=== PATIENT | female | born 1990 | race Caucasian/White ===

== ENCOUNTER 2018-03-14 16:04 | Emergency (ER) | payer OTHER ==
--- NOTE | 2018-03-14 19:11 | ED ---
- HPI Summary HPI Summary: 27 female presents ER with complaints of some lower suprapubic cramping and lower back discomfort that's been ongoing over the past couple weeks. Symptoms have become more frequent over the past 2 days. Patient states she thinks she is approximately 2 months as her last menstrual cycle was approximately 2 months ago, January 13. Also states she's had intermittent headaches. Denies any control. Has taken test at home that are positive. Denies any vaginal bleeding or discharge. . No fever or chills. Denies any urinary symptoms. Normal bowel movements. No other complaints or concerns. Has not taken any medication other than Excedrin for headaches she's been having. Has appointment with OB Sheela April 06. - History of Current Complaint Chief Complaint: EDOBProblems Stated Complaint: POSS PREG WITH HEADACHE AND CRAMPS Hx Obtained From: Patient Onset/Duration: Started Weeks Ago Timing: Intermittent Severity: Mild Current Severity: Mild Pain Intensity: 6 Location of Pain: Suprapubic Character: Cramping - Radiates to her lower back patient describes it as " period cramps/discomfort" Aggravating Factors: Nothing Alleviating Factors: Medication - Excedrin Associated Signs and Symptoms: Positive: Negative. Negative: Appetite, Fever, Nausea, Urinary Symptoms, Vaginal Bleeding or Discharge, Vomiting - Assessment SAB: 0 IEA: 0 - Additional Pertinent History Maternal Blood Type and Rh: A Positive - Allergies/Home Medications Allergies/Adverse Reactions: Allergies Allergy/AdvReac Type Severity Reaction Status Date / Time No Known Allergies Allergy Verified 03/14/18 16:28 PMH/Surg Hx/FS Hx/Imm Hx Endocrine/Hematology History: Denies: Hx Anticoagulant Therapy, Hx Diabetes Cardiovascular History: Denies: Hx Hypertension, Hx Pacemaker/ICD Respiratory History: Reports: Hx Asthma Musculoskeletal History: Reports: Hx Scoliosis - SLIGHT Sensory History: Denies: Hx Hearing Aid Neurological History: Denies: Hx Headaches, Other Neuro Impairments/Disorders Psychiatric History: Reports: Hx Depression, Hx Community Mental Health Tx Denies: Hx Panic Disorder, Hx of Violent Episodes Against Others - Surgical History Surgery Procedure, Year, and Place: None - Immunization History Date of Tetanus Vaccine: UTD Date of Influenza Vaccine: NONE Immunizations Up to Date: Yes Infectious Disease History: No Infectious Disease History: Reports: 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, elbow Denies: Traveled Outside the [place] in Last 30 Days - Family History Known Family History: Positive: None - Social History Alcohol Use: None Substance Use Type: Reports: None Smoking Status (MU): Never Smoked Tobacco Review of Systems Constitutional: Negative Cardiovascular: Negative Respiratory: Negative Positive: Abdominal Pain Musculoskeletal: Negative Skin: Negative Positive: Headache All Other Systems Reviewed And Are Negative: Yes Physical Exam - Physical Exam Triage Information Reviewed: Yes Vital Signs On Initial Exam: Temp 98.5 Heart rate 71 Blood pressure 105/71 Oxygen 100 Respirations 16 Appearance: Positive: Well-Appearing, No Pain Distress, Well-Nourished Skin: Positive: Warm, Skin Color Reflects Adequate Perfusion, Dry. Negative: Cold, Numb, Soft, Pale Head/Face: Positive: Normal Head/Face Inspection Eyes: Positive: Conjunctiva Clear ENT: Positive: Hearing grossly normal Neck: Positive: Supple, Nontender Respiratory/Lung Sounds: Positive: Clear to Auscultation, Breath Sounds Present. Negative: Rales, Rhonchi, Wheezes Cardiovascular: Positive: Normal, RRR, Pulses are Symmetrical in both Upper and Lower Extremities. Negative: Murmur, Rub Abdomen Description: Positive: Nontender, No Organomegaly, Soft, Other: - Negative Gagnon's, psoas, rebound, Rovsing. Negative: Bruit, CVA Tenderness (R) , CVA Tenderness (L), Distended, Guarding, McBurney's Point Tenderness, Peritoneal Signs Bowel Sounds: Positive: Present Musculoskeletal: Positive: Normal, Strength/ROM Intact Neurological: Positive: Normal, Sensory/Motor Intact, Alert, Oriented to Person Place, Time, NV Bundle Intact Distally, Normal Gait - Vaginal Assessment Presentation Comment: not examined Diagnostics - Vital Signs Vital Signs Temp Pulse Resp BP Pulse Ox 03/14/18 16:23 98.5 F 71 16 105/71 100 - Laboratory Lab Statement: Any lab studies that have been ordered have been reviewed, and results considered in the medical decision making process. - Ultrasound No standard instances Ultrasound Interpretation: Positive (See Comments) - #. Single intrauterine gestation with estimated gestational age of 6 weeks 2 days, small for dates based on the LMP, with multiple additional poor prognostic factors including absence of movement or detectable cardiac activity and reticulated pattern of low level echoes within the gestational sac as well as small perigestational hemorrhage. Probable nonviable . #. Small involuting corpus luteum cyst at the LEFT ovary. Ultrasound Interpretation Completed By: Radiologist Re-Evaluation - Re-Evaluation First Eval Re-Evaluation Time: 19:35 Change: Unchanged - Updated on ultrasound report Course/Dx - Course Course Of Treatment: Given heating pad for pain. Ultrasound obtained showing intrauterine gestation however poor prognostic factors were seen suggesting probable nonviable . Patient probably experiencing threatened miscarriage. Follow-up with CARE DIRECTOR RN 1-3 days. Tylenol and heating pad. Increase fluid intake. Aware worsening signs and symptoms watch out for and when to return to ER if occur. Patient consoled. All questions were answered. Rest of exam and vital signs normal. No other concerns at this time. - Differential Diagnosis/HQI/PQRI: Threatened , Early - Diagnoses Provider Diagnoses: , Threatened miscarriage in early Discharge - Sign-Out/Discharge Documenting (check all that apply): Patient Departure - Discharge Plan Condition: Good Disposition: HOME Patient Education Materials: Threatened Miscarriage (ED), (ED) Referrals: Luisa Zambrano MD [Medical Doctor] - Chirag Turcios NP [Primary Care Provider] - Additional Instructions: Follow-up with CARE DIRECTOR RN for repeat labs and imaging. Any new or worsening symptoms please seek medical attention, as we discussed. Recommend taking Tylenol for discomfort and apply a heating pad as discussed. - Billing Disposition and Condition Condition: GOOD Disposition: Home
--- NOTE | 2018-03-14 19:29 | RAD ---
Indication: 8 weeks 4 days gestation based on January 13, 2018 LMP. 3 weeks pelvic and back pain and cramping. Comparison: No relevant prior exams available on the [facility] PACS for comparison. Technique: Transvaginal obstetrical ultrasound. Report: Solitary intrauterine gestational sac with 1.46 mean gestational sac diameter. 0.38 cm crown-rump length pole without visualized movement or detectable cardiac activity. Reticulated pattern of low level echoes throughout the gestational sac. Unremarkable 0.37 cm diameter yolk sac. Small perigestational hemorrhage. Unremarkable 3.3 x 2.1 x 2.2 cm RIGHT ovary with documented vascular flow. 3.8 x 2.2 x 2.5 cm LEFT ovary with documented vascular flow is remarkable for an irregular morphology thickened wall cystic structure measuring 1.7 x 1.6 x 1.4 cm devoid of intrinsic vascularity most consistent with an involuting corpus luteum cyst. No visualized extra ovarian adnexal region lesions or free pelvic fluid. IMPRESSION: #. Single intrauterine gestation with estimated gestational age of 6 weeks 2 days, small for dates based on the LMP, with multiple additional poor prognostic factors including absence of movement or detectable cardiac activity and reticulated pattern of low level echoes within the gestational sac as well as small perigestational hemorrhage. Probable nonviable . #. Small involuting corpus luteum cyst at the LEFT ovary.
[2018-03-14 19:39] LABS: Urine Appearance Clear; Urine Blood Negative (Negative); Urine Color Straw; Urine Ketones Negative (Negative); Urine Protein Negative (Negative); Urine Specific Gravity 1.004 (1.010-1.030); Urine Urobilinogen Negative (Negative)
[2018-03-14 20:17] VITALS: BP 128/61
== END 2018-03-14 20:17 | disposition home or self-care (01) ==
LOC: ED 16:04
DX: O20.0 Threatened abortion (principal); N83.12 Corpus luteum cyst of left ovary; R51 Headache
CPT/HCPCS: 36415; 76817; 81003; 84702; 99282

== ENCOUNTER 2018-05-29 21:41 | Emergency (ER) | payer OTHER ==
[2018-05-29 22:31] LABS: ABS Basophils 0.1 10^3/ul (0-0.2); ABS Eosinophils 0.2 10^3/ul (0-0.6); ABS Lymphocytes 3.3 10^3/ul (1.0-4.8); ABS Monocytes 0.7 10^3/ul (0-0.8); ABS Neutrophils 5.1 10^3/ul (1.5-7.7); ABS Nucleated RBC 0 10^3/ul; Eosinophil % 2.4 % (0-6); Hematocrit 37 % (35-47); Hemoglobin 12.3 g/dl (12.0-16.0); Lymphocyte % 34.7 % (25-47); Mean Corpuscular HGB Conc 34 g/dl (31-36); Mean Corpuscular Hemoglobin 31 pg (27-31); Mean Corpuscular Volume 90 fL (80-97); Mean Platelet Volume 8.2 um3 (7.4-10.4); Nucleated Red Blood Cells % 0.1; Platelet Count 243 10^3/ul (150-450); Red Blood Count 4.04 10^6/ul (4.00-5.40); Red Cell Distribution Width 13 % (10.5-15); White Blood Count 9.4 10^3/ul (3.5-10.8)
[2018-05-29 23:15] LABS: Urine Appearance Cloudy; Urine Blood Negative (Negative); Urine Color Yellow; Urine Ketones Negative (Negative); Urine Protein Negative (Negative); Urine Red Blood Cell Absent (Absent); Urine Specific Gravity 1.012 (1.010-1.030); Urine Urobilinogen Negative (Negative); Urine White Blood Cell Trace(0-5/hpf) (Absent)
--- NOTE | 2018-05-30 00:58 | ED ---
GI/ HPI - HPI Summary HPI Summary: 27 female presents with chest pain and pelvic pain for the 3 weeks. She admits to cough. She denies any shortness. She states the chest pain is worse on the right side is sharp in nature. She had a history of asthma when she was younger. is not a smoker. She states that she had a miscarriage 2 months ago. She had one period since. She denies any abnormal vaginal discharge. No urinary symptoms. She denies any flank pain. No fevers. No previous abdominal surgeries. no history of diverticulitis. She denies any nausea vomiting. No diarrhea or constipation. - History of Current Complaint Chief Complaint: EDGeneral Time Seen by Provider: 05/29/18 22:16 Stated Complaint: SOB/LOWER ABD PAIN/CHEST PAIN Pain Intensity: 6 - Allergy/Home Medications Allergies/Adverse Reactions: Allergies Allergy/AdvReac Type Severity Reaction Status Date / Time No Known Allergies Allergy Verified 05/29/18 21:49 PMH/Surg Hx/FS Hx/Imm Hx Endocrine/Hematology History: Denies: Hx Anticoagulant Therapy, Hx Diabetes Cardiovascular History: Denies: Hx Hypertension, Hx Pacemaker/ICD Respiratory History: Reports: Hx Asthma Musculoskeletal History: Reports: Hx Scoliosis - SLIGHT Sensory History: Denies: Hx Hearing Aid Neurological History: Denies: Hx Headaches, Other Neuro Impairments/Disorders Psychiatric History: Reports: Hx Depression, Hx Community Mental Health Tx Denies: Hx Panic Disorder, Hx of Violent Episodes Against Others - Surgical History Surgery Procedure, Year, and Place: None - Immunization History Date of Tetanus Vaccine: UTD Date of Influenza Vaccine: NONE Infectious Disease History: No Infectious Disease History: Reports: 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 Negative: Shortness Of Breath Positive: Abdominal Pain. Negative: Vomiting, Diarrhea, Nausea Negative: dysuria All Other Systems Reviewed And Are Negative: Yes Physical Exam Triage Information Reviewed: Yes Vital Signs On Initial Exam: Initial Vitals Temp Pulse Resp BP Pulse Ox 98.2 F 71 16 109/65 100 05/29/18 21:46 05/29/18 21:46 05/29/18 21:46 05/29/18 21:46 05/29/18 21:46 Vital Signs Reviewed: Yes Appearance: Positive: Well-Appearing Skin: Positive: Warm, Dry Head/Face: Positive: Normal Head/Face Inspection Eyes: Positive: Normal, EOMI, DUSTIN, Conjunctiva Clear ENT: Positive: Normal ENT inspection, Pharynx normal, TMs normal Respiratory/Lung Sounds: Positive: Clear to Auscultation, Breath Sounds Present , Other - reproducible chest pain Cardiovascular: Positive: Normal, RRR Abdomen Description: Positive: Soft, Other: - tenderness suprapubic Pelvic Exam: Positive: External Exam Normal, Speculum Exam Normal, Bimanual Exam Normal, No Cerv. Motion Tender, Tender Adnexa - left. Negative: Discharge Musculoskeletal: Positive: Normal Neurological: Positive: Normal Psychiatric: Positive: Normal Diagnostics - Vital Signs Vital Signs Temp Pulse Resp BP Pulse Ox 05/29/18 21:46 98.2 F 71 16 109/65 100 - Laboratory Lab Results: Lab Results 05/29/18 05/29/18 05/29/18 Range/Units 22:21 22:21 22:21 WBC 9.4 (3.5-10.8) 10^3/ul RBC 4.04 (4.00-5.40) 10^6/ul Hgb 12.3 (12.0-16.0) g/dl Hct 37 (35-47) % MCV 90 (80-97) fL MCH 31 (27-31) pg MCHC 34 (31-36) g/dl RDW 13 (10.5-15) % Plt Count 243 (150-450) 10^3/ul MPV 8.2 (7.4-10.4) um3 Neut % (Auto) 54.7 (38-83) % Lymph % (Auto) 34.7 (25-47) % [place] % (Auto) 7.6 H (0-7) % Eos % (Auto) 2.4 (0-6) % Baso % (Auto) 0.6 (0-2) % Absolute Neuts (auto) 5.1 (1.5-7.7) 10^3/ul Absolute Lymphs (auto) 3.3 (1.0-4.8) 10^3/ul Absolute Monos (auto) 0.7 (0-0.8) 10^3/ul Absolute Eos (auto) 0.2 (0-0.6) 10^3/ul Absolute Basos (auto) 0.1 (0-0.2) 10^3/ul Absolute Nucleated RBC 0 10^3/ul Nucleated RBC % 0.1 D-Dimer, Quantitative < 200 (Less Than 230) ng/mL Sodium 139 (135-145) mmol/L Potassium 4.0 (3.5-5.0) mmol/L Chloride 106 (101-111) mmol/L Carbon Dioxide 29 (22-32) mmol/L Anion Gap 4 (2-11) mmol/L BUN 16 (6-24) mg/dL Creatinine 0.78 (0.51-0.95) mg/dL Est GFR ( Amer) 108.9 (>60) Est GFR (Non-Af Amer) 90.0 (>60) BUN/Creatinine Ratio 20.5 H (8-20) Glucose 91 (70-100) mg/dL Calcium 9.5 (8.6-10.3) mg/dL Total Bilirubin 0.50 (0.2-1.0) mg/dL AST 13 (13-39) U/L ALT 10 (7-52) U/L Alkaline Phosphatase 37 (34-104) U/L Troponin I 0.00 (<0.04) ng/mL C-Reactive Protein < 1.00 (<8.01) mg/L Total Protein 7.3 (6.4-8.9) g/dL Albumin 4.7 (3.2-5.2) g/dL Globulin 2.6 (2-4) g/dL Albumin/Globulin Ratio 1.8 (1-3) Lipase 22 (11.0-82.0) U/L Beta HCG, Quant 2.54 mIU/mL Urine Color Urine Appearance Urine pH (5-9) Ur Specific Conifer (1.010-1.030) Urine Protein (Negative) Urine Ketones (Negative) Urine Blood (Negative) Urine Nitrate (Negative) Urine Bilirubin (Negative) Urine Urobilinogen (Negative) Ur Leukocyte Esterase (Negative) Urine WBC (Auto) (Absent) Urine RBC (Auto) (Absent) Ur Squamous Epith Cells (Absent) Urine Bacteria (Absent) Urine Glucose (Negative) 05/29/18 Range/Units 23:04 WBC (3.5-10.8) 10^3/ul RBC (4.00-5.40) 10^6/ul Hgb (12.0-16.0) g/dl Hct (35-47) % MCV (80-97) fL MCH (27-31) pg MCHC (31-36) g/dl RDW (10.5-15) % Plt Count (150-450) 10^3/ul MPV (7.4-10.4) um3 Neut % (Auto) (38-83) % Lymph % (Auto) (25-47) % [place] % (Auto) (0-7) % Eos % (Auto) (0-6) % Baso % (Auto) (0-2) % Absolute Neuts (auto) (1.5-7.7) 10^3/ul Absolute Lymphs (auto) (1.0-4.8) 10^3/ul Absolute Monos (auto) (0-0.8) 10^3/ul Absolute Eos (auto) (0-0.6) 10^3/ul Absolute Basos (auto) (0-0.2) 10^3/ul Absolute Nucleated RBC 10^3/ul Nucleated RBC % D-Dimer, Quantitative (Less Than 230) ng/mL Sodium (135-145) mmol/L Potassium (3.5-5.0) mmol/L Chloride (101-111) mmol/L Carbon Dioxide (22-32) mmol/L Anion Gap (2-11) mmol/L BUN (6-24) mg/dL Creatinine (0.51-0.95) mg/dL Est GFR ( Amer) (>60) Est GFR (Non-Af Amer) (>60) BUN/Creatinine Ratio (8-20) Glucose (70-100) mg/dL Calcium (8.6-10.3) mg/dL Total Bilirubin (0.2-1.0) mg/dL AST (13-39) U/L ALT (7-52) U/L Alkaline Phosphatase (34-104) U/L Troponin I (<0.04) ng/mL C-Reactive Protein (<8.01) mg/L Total Protein (6.4-8.9) g/dL Albumin (3.2-5.2) g/dL Globulin (2-4) g/dL Albumin/Globulin Ratio (1-3) Lipase (11.0-82.0) U/L Beta HCG, Quant mIU/mL Urine Color Yellow Urine Appearance Cloudy Urine pH 6.0 (5-9) Ur Specific Conifer 1.012 (1.010-1.030) Urine Protein Negative (Negative) Urine Ketones Negative (Negative) Urine Blood Negative (Negative) Urine Nitrate Negative (Negative) Urine Bilirubin Negative (Negative) Urine Urobilinogen Negative (Negative) Ur Leukocyte Esterase 3+ A (Negative) Urine WBC (Auto) Trace(0-5/hpf) (Absent) Urine RBC (Auto) Absent (Absent) Ur Squamous Epith Cells Present A (Absent) Urine Bacteria Absent (Absent) Urine Glucose Negative (Negative) Result Diagrams: 05/29/18 22:21 05/29/18 22:21 Lab Statement: Any lab studies that have been ordered have been reviewed, and results considered in the medical decision making process. - Radiology chest Radiology Interpretation Completed By: ED Physician Summary of Radiographic Findings: NAD - Ultrasound No standard instances Ultrasound Interpretation Completed By: Radiologist Summary of Ultrasound Findings: Normal pelvic ultrasound. Heterogeneous appearance to the endometrial stripe. which correlates with the patient's history menstrual bleeding. No evidence of. a uterine or intestinal mass. - EKG No standard instances Cardiac Rate: NL EKG Rhythm: Sinus Rhythm EKG Comparison: No Significant Change Summary of EKG Findings: sinus rhythm similiar to previous Re-Evaluation - Re-Evaluation First Eval Re-Evaluation Time: 01:47 Change: Improved Comment: feeling better. discussed results GIGU Course/Dx - Course Course Of Treatment: 27 female presents with chest pain and pelvic pain for the 3 weeks. She admits to cough. She denies any shortness. She states the chest pain is worse on the right side is sharp in nature. She had a history of asthma when she was younger. is not a smoker. She states that she had a miscarriage 2 months ago. She had one period since. She denies any abnormal vaginal discharge. No urinary symptoms. She denies any flank pain. No fevers. No previous abdominal surgeries. no history of diverticulitis. She denies any nausea vomiting. No diarrhea or constipation. On exam reproducible chest pain present. EKG similar to previous. Lungs clear to auscultation. Abdomen tenderness suprapubic. Pelvic exam tenderness over left adnexa. She had ultrasound is normal. Pelvic exam no cervical motion tenderness or vaginal discharge. Urine maybe possible UTI so treat with Macrobid. We will treat cough and chest pain as a bronchitis with steroid. Patient Understands Agrees the Plan. - Diagnoses Differential Diagnoses - Female: Ovarian Cyst, STD, Ureteral Calculi Provider Diagnoses: Pelvic pain, Cough, Chest pain, UTI (urinary tract infection) Discharge - Sign-Out/Discharge Documenting (check all that apply): Patient Departure - Discharge Plan Condition: Good Disposition: HOME Prescriptions: Benzonatate CAP* [Tessalon 100 MG CAP*] 100 mg PO TID #21 cap Nitrofurantoin Monohyd/M-Cryst [Macrobid 100 mg Capsule] 100 mg PO BID #13 cap predniSONE TAB* [Deltasone TAB*] 50 mg PO DAILY #4 tab Patient Education Materials: Urinary Tract Infection in Women (ED), Acute Bronchitis (ED) Referrals: Luisa Zambrano MD [Medical Doctor] - [facility] [place]Outside] Additional Instructions: follow up with tube coverer about pelvic pain Use Tessalon three times a day for cough Take steroid once a day for 4 days take macrobid twice a day for 7 days take tyenlol or ibuprofen for pain every 6 hours est care with primary care physician Return to ED if develop any new or worsening symptoms - Billing Disposition and Condition Condition: GOOD Disposition: Home
[2018-05-30] MEDS ORDERED: predniSONE TAB* 20 MG PO ONE (01:40)
[2018-05-30] MEDS ORDERED: Benzonatate CAP* 100 MG PO ONE (01:40)
[2018-05-30] MEDS ORDERED: Nitrofurantoin Macrocrystals* 100 MG CAP PO ONE (01:47)
--- NOTE | 2018-05-30 01:54 | RAD ---
EXAM: US Pelvis, Transvaginal EXAM DATE/TIME: 05/30/2018 12:46 AM CLINICAL HISTORY: 27 years old, female; Pain; Pelvic pain; Additional info: Llq pain, S/P miscarriage in march TECHNIQUE: Real-time transvaginal pelvic ultrasound with image documentation. Transvaginal imaging was used for better evaluation of the endometrium and adnexa. COMPARISON: PREGTRNVAG US PREG TRANSVAGINAL 03/14/2018 6:24 PM FINDINGS: Uterus/cervix: The uterus measures 7.1 cm in length, 3.1 cm in height and 4.0 cm in width. The endometrial thickness is 6.6 mm. The endometrium has somewhat of a heterogeneous signal appearance. Right adnexa: The right ovary measures 3.2 x 2.5 x 2.7 cm. Normal blood flow. Right ovarian cysts measuring 2.4 x 1.3 right 1.6 cm. This appears to be a benign functional cyst. Left adnexa: Left ovary measures 3.4 x 2.3 x 2.2 cm. Normal blood flow. No adnexal mass. Free fluid: No free pelvic fluid. Bladder: Empty bladder. Bladder cannot be evaluated with this probe. IMPRESSION: Normal pelvic ultrasound. Heterogeneous appearance to the endometrial stripe which correlates with the patient's history menstrual bleeding. No evidence of a uterine or intestinal mass. To contact [facility] with a general question: [facility] - [phone] For direct physician to physician contact: Physician Hotline - [phone] [facility] ([facility] Facility ID #[id number])
[2018-05-30 02:13] VITALS: BP 112/73
--- NOTE | 2018-05-30 07:59 | RAD ---
INDICATION: Cough. COMPARISON: Comparison is made with prior study from June 06, 2013. TECHNIQUE: Dual-energy PA and lateral views of the chest were obtained. FINDINGS: The heart is within normal limits in size. Mediastinal and hilar contours appear within normal limits. The lungs are clear. No pleural effusion is present. IMPRESSION: NO EVIDENCE FOR ACTIVE CARDIOPULMONARY DISEASE. R0
--- NOTE | 2018-05-31 14:41 | PN ---
Progress Note - Progress Note Date of Service: 05/29/18 Note: Pt. seen in ED 05/29 for abd. pain. She was started on Macrobid for possible UTI. Vaginal cultures obtained. Culture today is positive for gardnerella. STI testing negative. I called and spoke with pt. today at 1435 and discussed results. She notes mild vaginal discharge. Will start on flagyl. Advised to dc macrobid since culture is negative. She will f.u with her MAIL INSERTER. Pt. understands and agrees with plan.
== END 2018-05-30 02:12 | disposition home or self-care (01) ==
LOC: ED 21:41
DX: N39.0 Urinary tract infection, site not specified (principal); R07.9 Chest pain, unspecified; R10.2 Pelvic and perineal pain; R05 Cough; R10.9 Unspecified abdominal pain
CPT/HCPCS: 36415; 71046; 76830; 80053; 81003; 81015; 83690; 84484; 84702; 85025; 85379; 86140; 87086; 87480; 87491; 87510; 87591; 87661; 93005; 99283; A9270-GY; J7512

== ENCOUNTER 2018-11-16 06:45 | Day surgery (SDC) | payer OTHER ==
[~2018-11-16 06:45] MED LIST: Acetaminophen TAB* 325 MG PO ONE; Buffered Lidocaine 1% SYRIN* 1 ML/SYRINGE INTRADERM ONE; Lactated Ringers 1000 ML Bag* 1,000 ML IV SCH
[2018-11-16] MEDS ORDERED: NS IVPB ONE (07:00)
[2018-11-16] MEDS ORDERED: DOXYCYCLINE IVPB ONE (07:00)
[2018-11-16] MEDS ORDERED: Acetaminophen TAB* 325 MG ONE (07:42)
[2018-11-16] MEDS ORDERED: Buffered Lidocaine 1% SYRIN* 1 ML/SYRINGE INTRADERM ONE (07:42)
[2018-11-16] MEDS ORDERED: fentaNYL* 50 MCG/ML 2 ML VIAL (100 MCG VIAL) ONE ×2 (08:16→10:03)
[2018-11-16] MEDS ORDERED: Midazolam* 1 MG/ML 2 ML VIAL (2 MG) ONE (08:16)
[2018-11-16 08:28] LABS: Hematocrit 38 % (33-41); Mean Corpuscular HGB Conc 34 g/dL (31-36); Mean Corpuscular Hemoglobin 31 pg (27-31); Mean Corpuscular Volume 91 fL (80-97); Mean Platelet Volume 8.2 fL (7.4-10.4); Platelet Count 228 10^3/uL (150-450); Red Blood Count 4.19 10^6 /uL (3.70-4.87); Red Cell Distribution Width 13 % (10.5-15)
[2018-11-16] MEDS ORDERED: Famotidine IV* 10 MG/ML 2 ML (20 mg) ONE (08:50)
[2018-11-16] MEDS ORDERED: Lidocaine 2% PF * 5 ML VIAL ONE (08:55)
[2018-11-16] MEDS ORDERED: Propofol* 10 MG/ML 20 ML BTL ONE (08:59)
[2018-11-16] MEDS ORDERED: Ondansetron INJ* 2 MG/ML VIAL ONE (08:59)
[2018-11-16] MEDS ORDERED: Dexamethasone IV* 4 MG/ML 1 ML (4 MG) ONE (08:59)
[2018-11-16] MEDS ORDERED: Ketorolac INJ* 30 MG/ML 1 ML VIAL ONE (08:59)
[2018-11-16] MEDS ORDERED: PROCHLORPERAZINE INJ 5 MG/ML 2 ML VIAL IV PRN (09:12)
[2018-11-16] MEDS ORDERED: Naloxone* 0.4 MG/ML 1 ML VIAL IV PRN (09:12)
[2018-11-16] MEDS ORDERED: Levalbuterol 0.63MG/3ML NEB* UNIT OF USE INH PRN (09:12)
[2018-11-16] MEDS ORDERED: diPHENhydraMINE IV* 50 MG/ML 1 ml VIAL (BENADRYL) IV PRN (09:12)
[2018-11-16] MEDS ORDERED: Ondansetron INJ* 2 MG/ML VIAL IV PRN (09:12)
[2018-11-16] MEDS ORDERED: DiMENhydriNATE IV* 50 MG/ML VIAL IV PUSH PRN (09:12)
[2018-11-16] MEDS ORDERED: HYDROcodone/ACETAMIN 5-325 MG* 1 TAB PO PRN ×2 (09:12)
[2018-11-16] MEDS: fentaNYL* 50 MCG/ML 2 ML VIAL (100 MCG VIAL) IV PRN ×2 (10:04→10:12)
[2018-11-16] MEDS ORDERED: HYDROcodone/ACETAMIN 5-325 MG* 1 TAB ONE (10:24)
--- NOTE | 2018-11-16 10:55 | OP ---
OPERATIVE REPORT: DATE OF OPERATION: 11/16/18 DATE OF : 89 SURGEON: Torey Mcdonough MD. ANESTHESIOLOGIST: Dr. Madrid. ANESTHESIA: General. PRE-OP DIAGNOSIS: Missed at about 9 weeks gestation. POST-OP DIAGNOSIS: Missed at about 9 weeks gestation. OPERATIVE PROCEDURE: Suction dilation, and curettage. ESTIMATED BLOOD LOSS: 100 cc. URINE OUTPUT: 200 cc. IV FLUIDS: 900 cc lactated Ringer's. MATERIALS TO LAB: Products of conception. INDICATIONS: This patient is a 28-year-old 3, para 1-0-2-1 who presented to the office about 2 weeks ago and was found to have a missed at about 9 weeks gestation. After discussion, the patient desired to proceed with a D&C. She was extensively counseled and consent was signed. FINDINGS: Appropriate amount of uterine tissue and fluid. Uterine cavity felt to be normal. COMPLICATIONS: None. DESCRIPTION OF PROCEDURE: The risks, benefits, and alternatives were described to the patient, and informed consent was obtained. The patient was taken to the operating room with IV running where general anesthesia was induced and found to be adequate. The patient was prepped and draped in the normal sterile fashion in the high lithotomy position in [facility]. A time-out was performed. The bladder was emptied. A bivalve speculum was placed in the vagina and a single- tooth tenaculum was placed on the anterior cervix. The cervix was then gently dilated using Turner's and then Hegar dilators to a size 10. At that time , the uterus was sounded to about 11 cm. A 10 curved suction curette was advanced through the cervix and into the uterine cavity, suction was activated, and with 2 passes a moderate amount of tissue and fluid was obtained. The suction curette was removed and a gentle curettage with a medium banjo curette was performed and there was no remaining palpable tissue present within the uterine cavity. There was minimal bleeding at that time. The tenaculum was then removed from the cervix with good hemostasis. The speculum was removed and the patient was returned to the supine position. The patient tolerated the procedure well. Sponge, lap, and needle counts were correct x2. [id number]/[facility] #: [id number] [facility]
[2018-11-16 11:12] VITALS: BP 114/74
== END 2018-11-16 11:14 | disposition home or self-care (01) ==
LOC: OR 06:45
PROVIDERS: ATTEND Obstetrics & Gynecology
DX: O02.1 Missed abortion (principal); J45.990 Exercise induced bronchospasm; F32.9 Major depressive disorder, single episode, unspecified
CPT/HCPCS: 36415; 85027; 86850; 86900; 86901; 88305; A9270-GY; J1100; J1885; J2250; J2405; J2704; J3010

== ENCOUNTER 2018-11-20 14:41 | Observation (INO) | payer OTHER ==
--- NOTE | 2018-11-20 15:17 | ED ---
Abdominal Pain/Female - HPI Summary HPI Summary: A 28 y/o F presents to ED with c/o diffuse abd pain onset last night, and worsening today. Pt had a D&C on 11/16/[address] Mcdonough, OB-TRANSITION LEAD. Associated sx : vaginal blood clots, lightheadedness, subjective fever, chills. She contacted Dr. Mcdonough's office who referred her to the ED. She states being healthy otherwise, no daily medications. - History of Current Complaint Chief Complaint: EDAbdPain Stated Complaint: ABD PAIN/VAGINAL BLEEDING/D&C ON 11/16 PER PT Time Seen by Provider: 11/20/18 15:12 Hx Obtained From: Patient Onset/Duration: Gradual Onset, Lasting Days - yesterday, Still Present Timing: Constant Severity Initially: Moderate Severity Currently: Severe Pain Intensity: 8 Pain Scale Used: 0-10 Numeric Location: Diffuse Associated Signs and Symptoms: Positive: Fever - subjective, Vaginal Bleeding, Other: - pos: chills, lightheadedness Allergies/Adverse Reactions: Allergies Allergy/AdvReac Type Severity Reaction Status Date / Time No Known Allergies Allergy Verified 11/20/18 15:01 PMH/Surg Hx/FS Hx/Imm Hx Previously Healthy: Yes Endocrine/Hematology History: Denies: Hx Anticoagulant Therapy, Hx Diabetes Cardiovascular History: Denies: Hx Hypertension, Hx Pacemaker/ICD Respiratory History: Reports: Hx Asthma - YOUNG CHILD Musculoskeletal History: Reports: Hx Scoliosis - SLIGHT Sensory History: Reports: Hx Contacts or Glasses - GLASSES Denies: Hx Hearing Aid Opthamlomology History: Reports: Hx Contacts or Glasses - GLASSES Neurological History: Denies: Hx Headaches, Other Neuro Impairments/Disorders Psychiatric History: Reports: Hx Anxiety - Hx OF NONE IN FEW YEARS, Hx Depression, Hx Community Mental Health Tx Denies: Hx Panic Disorder, Hx of Violent Episodes Against Others - Surgical History Surgery Procedure, Year, and Place: None Hx Anesthesia Reactions: - PT WOULD LIKE TO HEAR WHAT ARE THE ANESTHSIA OPTIONS - Immunization History Date of Tetanus Vaccine: UTD Date of Influenza Vaccine: NONE Infectious Disease History: No Infectious Disease History: Reports: 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, elbow Denies: Traveled Outside the [place] in Last 30 Days - Family History Known Family History: Positive: Other - dad - ETOH abuse - Social History Occupation: Employed Full-time Lives: With Family Alcohol Use: Occasionally Alcohol Amount: 1-2 DRINKS/ MONTH Substance Use Type: Reports: None Hx Tobacco Use: No Smoking Status (MU): Never Smoked Tobacco Have You Smoked in the Last Year: No Review of Systems Positive: Fever - subjective, Chills Positive: Abdominal Pain Positive: other - pos: vaginal bleeding (clots) Neurological: Other - pos: lightheadedness All Other Systems Reviewed And Are Negative: Yes Physical Exam - Summary Physical Exam Summary: Appearance: Well-appearing, Well-nourished, uncomfortable and in pain in stretcher Skin: Warm, dry, no obvious rash Eyes: sclera anicteric, no conjunctival pallor ENT: mucous membranes moist, pharynx appears normal Neck: Supple, nontender Respiratory: Clear to auscultation, no signs of respiratory distress Cardiovascular: Normal S1, S2. No murmurs. Normal distal pulses in tibial and radial bilaterally. Abdomen: Soft, normal active bowel sounds present, mild lower abd tenderness without peritoneal signs Musculoskeletal: Normal, Strength/ROM Intact Neurological: A&Ox3, awake and alert, mentation is normal, speech is fluent and appropriate Psychiatric: affect is normal, does not appear anxious or depressed Triage Information Reviewed: Yes Vital Signs On Initial Exam: Initial Vitals Temp Pulse Resp BP Pulse Ox 98.5 F 78 18 104/64 99 11/20/18 14:56 11/20/18 14:56 11/20/18 14:56 11/20/18 14:56 11/20/18 14:56 Vital Signs Reviewed: Yes Diagnostics - Vital Signs Vital Signs Temp Pulse Resp BP Pulse Ox 11/20/18 14:56 98.5 F 78 18 104/64 99 - Laboratory Result Diagrams: 11/20/18 15:32 11/20/18 15:32 Lab Statement: Any lab studies that have been ordered have been reviewed, and results considered in the medical decision making process. - Ultrasound No standard instances Ultrasound Interpretation Completed By: Radiologist Summary of Ultrasound Findings: TRANSVAGINAL US IMPRESSION: #. Endometrium is distended measuring up to 37 mm with heterogeneous avascular material most consistent with blood products given the clinical context. Consider follow-up beta hCG and ultrasound for reassessment. ED provider has reviewed this report. Abdominal Pain Fem Course/Dx - Course Course Of Treatment: Pt is a 28 y/o F who had a D&C on 11/16/18 presenting with diffuse abd pain and vaginal bleeding onset last night, and worsening today. Sees Dr. Mcdonough, OB-TRANSITION LEAD. Labwork is unremarkable. Transvag US shows " Endometrium is distended measuring up to 37 mm with heterogeneous avascular material most consistent with blood products given the clinical context. Consider follow-up beta hCG and ultrasound for reassessment.". Consulted with Dr. Tavarez, OB-TRANSITION LEAD, who will see pt in ED. Dr. Tavarez evaluated pt, and will take to OR. - Diagnoses Provider Diagnoses: Abnormal vaginal bleeding - Provider Notifications Discussed Care Of Patient With: Brant Shah - OB-TRANSITION LEAD Time Discussed With Above Provider: 15:22 Instructed by Provider To: Other - Recommends US to look at endometrium and possibility of retained products. Consulted again at 1618: Discussing transvag US results, he will see patient in ED. Will take pt to OR. Discharge - Sign-Out/Discharge Documenting (check all that apply): Patient Departure - ADMIT - OR Patient Received Moderate/Deep Sedation with Procedure: No - Discharge Plan Condition: Fair Disposition: ADMITTED TO [facility] - Billing Disposition and Condition Condition: FAIR Disposition: Admitted to [facility] - Attestation Statements Document Initiated by Cliftonibe: Yes Documenting Scribe: Shanice Chester Provider For Whom [facility] is Documenting (Include Credential): Dr. Georgi Gill MD Scribe Attestation: I, Shanice Chester, scribed for Dr. Georgi Gill MD on 11/20/18 at 1918. Scribe Documentation Reviewed: Yes Provider Attestation: The documentation as recorded by the Shanice vigil accurately reflects the service I personally performed and the decisions made by me, Dr. Georgi Gill MD Status of Scribe Document: Viewed
[2018-11-20] MEDS ORDERED: HYDROmorphone INJ1* 1 MG/ML SYRINGE IV SLOW PU ONE (15:18)
[2018-11-20] MEDS ORDERED: NS 0.9% 1000 ML** 2,000 ML IV ONE (15:18)
--- OUTSIDE RECORDS SUMMARY | 2018-11-20 15:26 | XMS REPORT | Continuity of Care Document ---
:1990 External Reference #:[id number] Author Name Dulce Hope CNM Address [address] [place] [address] Care Team Providers Name Role Phone Elan Gallagher PA Primary Care Physician Unavailable Payers Date Identification Numbers Payment Provider Subscriber Effective: 2014 Policy Number: [id number] [facility] Tesha Morrow PayID: [id number] [address] [place] [address] Policy Number: [id number] Medicaid [place] Tesha Morrow PayID: [id number] [address] [place] [address] Advance Directives Description No Information Available Problems Date Description Provider Status Onset: 03/31/2014 Primigravida Donan Deshpande NP Resolved Resolved: 12/02/2014 Family History Date Family Member(s) Observation Comments Father Cancer Mother A&W Children 1 First Daughter A&W Siblings 4 First Sister A&W Second Sister A&W Third Sister A&W Fourth Sister A&W Paternal Grandfather due to Emphysema () Paternal Grandmother Unknown Maternal Grandfather due to Accident () Maternal Grandmother Cancer Aunt Multiple Sclerosis (MS) Social History Type Date Description Comments Sex Unknown Education Highest level completed, 12th grade Marital Status Single Lives With Daughter Lives With Boyfriend Pets 1 dog Pets 2 cats 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 Tobacco Use Start: Unknown Never Smoked Cigarettes Smoking Status Reviewed: 04/07/18 Never Smoked Cigarettes ETOH Use Occasionally consumed None since alcohol in the past known Recreational Drug Use Denies Drug Use Tobacco Use Start: Unknown Patient has never smoked Exercise Type/Frequency Exercises regularly Seat Belt/Car Seat Always uses seat belt Currently Active Patient is currently sexually active Contraceptive Methods None STD's Trichomoniasis Allergies, Adverse Reactions, Alerts Description No Known Drug Allergies Medications Medication Date Status Form Strength Qnty SIG Indications Ordering Provider Oxycodone-Acet Active Tablets 5-325mg 7tabs 1 by mouth Dulce aminophen 019 every 4-6 Maccarald, hours as CNM needed for pain Flintstones Active Chewtabs 60mg 1 by mouth Unknown Complete 000 twice a day Ibuprofen Hx Tablets 800mg Q 6 hrs Dulce 018 - prn pain Maccarald, CNM 018 Flagyl Hx Tablets 500mg 14tabs 1 by mouth Tamica 015 - twice a Jump, day x7 ANP-C 015 No Active Hx Donna Medications 015 - 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 with dha 100-300 mg. thanks Nexplanon Hx Implant 68mg Unknown 000 - 018 Medications Administered in Office Medication Date Status Form Strength Qnty SIG Indications Ordering Provider PT SCRN Tbco Administered Injection Dulce Id as Non User 018 CHARLENE Hope PT SCRN Tbco Administered Injection Phaelon Id as Non User 018 MD Sharonda Immunizations CPT Code Status Date Vaccine Lot # [id number] Given 07/07/2014 Tetnus, Diptheria Toxoids And Acellular Pertussis, [id number] PT > 7Yrs Old Vital Signs Date Vital Result Comment 11/07/2018 7:55am BP Systolic 114 mmHg BP Diastolic 66 mmHg Height 67 inches 5'7" Weight 135.00 lb BMI (Body Mass Index) 21.1 kg/m2 Last Menstrual Period 1719056 3 Parity 1 04/06/2018 1:51pm BP Systolic 102 mmHg BP Diastolic 60 mmHg Height 67 inches 5'7" Weight 130.00 lb BMI (Body Mass Index) 20.4 kg/m2 Last Menstrual Period 6983130 2 Parity 1 03/26/2018 3:54pm BP Systolic 108 mmHg BP Diastolic 70 mmHg Height 67 inches 5'7" Weight 130.00 lb BMI (Body Mass Index) 20.4 kg/m2 Last Menstrual Period 8543617 2 Parity 1 03/15/2018 2:30pm BP Systolic 104 mmHg BP Diastolic 58 mmHg Height 67 inches 5'7" Weight 130.00 lb BMI (Body Mass Index) 20.4 kg/m2 Last Menstrual Period 8466352 2 Parity 1 03/25/2015 9:39am BP Systolic 112 mmHg BP Diastolic 70 mmHg Height 67 inches 5'7" Weight 135.00 lb BMI (Body Mass Index) 21.1 kg/m2 Last Menstrual Period 0165915 1 Parity 1 12/25/2014 8:15am BP Systolic 106 mmHg BP Diastolic 58 mmHg Height 67 inches 5'7" Weight 142.00 lb BMI (Body Mass Index) 22.2 kg/m2 Last Menstrual Period 1067577 1 Parity 1 12/02/2014 2:57pm BP Systolic 114 mmHg BP Diastolic 78 mmHg Height 67 inches 5'7" Weight 144.00 lb BMI (Body Mass Index) 22.6 kg/m2 Last Menstrual Period 5947246 1 Parity 1 03/31/2014 8:46am BP Systolic 112 mmHg BP Diastolic 56 mmHg Height 67 inches 5'7" Weight 139.00 lb BMI (Body Mass Index) 21.8 kg/m2 Last Menstrual Period 7345373 1 Parity 0 Results Test Date Facility Test Result H/L Range Note HIV 1/2 AB [facility] HIV 1 2 Nonreactive N Nonreactive 1 Evaluation [address] [place] [address] Antibody [phone] Laboratory [facility] Trichomonas Positive Abnormal Negative 2 test finding [address] [place] [address] Vaginalis Rna [phone] Laboratory [facility] Group B Strep (SEE NOTE) 3 test finding [address] [place] [address] Culture Screen [phone] Laboratory [facility] Glucose 1 HR 127 mg/dL N 70-160 test finding [address] [place] [address] Post Prandial [phone] CBC With No [facility] White Blood 14.0 10^3/uL High 4.8-10.8 Diff [address] [place] [address] Count [phone] Red Blood Count 3.74 10^6/uL Low 4.0-5.4 Hemoglobin 11.6 g/dL Low 12.0-16.0 Hematocrit 35 % N 35-47 Mean Corpuscular Volume 94 fL N 80-97 Mean Corpuscular Hemoglobin 31 pg N 27-31 Mean Corpuscular HGB Conc 33 g/dL N 31-36 Red Cell Distribution Width 13 % N 10.5-15 Platelet Count 226 10^3/uL N 150-450 Mean Platelet Volume 9 um3 N 7.4-10.4 Sequential Integreated SCRN 2 [place] 04/28/2014 [facility] Interpretation SEE BELOW 4 Risk For Ontd 1:4600 Age Risk Down Syndrome 1:1100 JENNIFER Down Syndrome Risk <1:5000 <1:270 JENNIFER Trisomy 18 Risk <1:5000 <1:100 Calculated Gestational Age 15.7 5 Afp,Serum 41.2 NG/ML Afp Mom 1.12 6 HCG,Serum 59.1 IU/mL HCG Mom 1.60 Estriol,Free 0.99 NG/ML Estriol Mom 1.11 Inhibin A,Dimeric 298 pg/mL Inhibin A Mom 1.61 Katy-A 325 NG/ML Katy-A Mom 0.46 NT Mom 0.78 7 Referring Physician Name KIT LEGER Referring Physician Phone [phone] Referring Physician Npi [id number] Specimen # From Part 1 [id number] Date Of 1990 Collection Date 04/28/2014 Maternal Weight 139 LBS Est'd Date Of Delivery 10/13/2014 Nuchal Translucency 1.0 MM [place] Rump Length 53 MM Ultrasound Date 03/31/2014 Nasal Bone NOT GIVEN Mother's Ethnic Origin Insulin Depend Diabetic NO Repeat Specimen NO Number Of Fetuses 1 HX Of Neural Tube Defects NO Twin B Nasal Bone NA 8 Urine Culture And 03/31/2014 [facility] Urine Culture (SEE NOTE ) 9 [place] [address] [phone] Sequential 03/31/2014 [facility] Interpretation SEE BELOW 10 Integrated SCRN 1 [place] Age Risk Down Syndrome 1:830 JENNIFER Down Syndrome Risk IN PROCESS <1:50 JENNIFER Trisomy 18 Risk IN PROCESS <1:100 Calculated Gestational Age 11.7 11 Katy-A 325 NG/ML Katy-A Mom 0.46 HCG,Serum 265.7 IU/mL HCG Mom 2.66 NT Mom 0.78 12 Referring Physician Name AFRICA; REENA DESHPANDE <SEE NOTE> 13 Referring Physician 14 Referring Physician Npi [id number] 15 Date Of 1990 16 Collection Date 03/31/2014 17 Maternal Weight 139 LBS 18 Est'd Date Of Delivery 10/13/2014 19 ELLA Determined By ULTRASOUND 20 Mother's Ethnic Origin 21 Number Of Fetuses 1 22 Insulin Depend Diabetic NO 23 Repeat Specimen NO 24 HX Of Neural Tube Defects NO 25 Brief History (NTD) NA 26 Prev Down Synd NO 27 Donor Egg NO 28 Donor Age:Egg Retrieval NA 29 Ultrasound Date 03/31/2014 30 Recovery Engineer's Name HOLLI 31 NTQR Recovery Engineer Id# [id number] NTQR Location Id# [id number] NTQR Reading Phys Id# [id number] FMF Recovery Engineer Id# NA 35 [place] Rump Length 53 MM 36 Nuchal Translucency 1.0 MM 37 Nasal Bone NOT GIVEN 38 If Twins NA 39 Twin B CRL NA MM 40 Twin B NT NA MM 41 Twin B Nasal Bone NA 42 Cystic Fibrosis Carrier ([place]) 03/31/2014 [facility] Reported Ethnicity see note 43 CF Result see note 44 Interpretation see note 45 Mutations/Polymorphisms see note 46 Method see note 47 Reviewer see note 48 HIV 1/2 AB 03/31/2014 [facility] HIV 1 2 Nonreactive N Nonreactive 49, [address] [place] [address] Antibody [phone] Type And 03/31/2014 [facility] [place] [address] Blood Type [phone] Antibody Screen NEGATIVE N CBC With No 03/31/2014 [facility] White Blood 12.0 10^3/uL High 4.8-10.8 [place] [address] Count [phone] Red Blood Count 3.97 10^6/uL Low 4.0-5.4 Hemoglobin 12.1 g/dL N 12.0-16.0 Hematocrit 37 % N 35-47 Mean Corpuscular Volume 92 fL N 80-97 Mean Corpuscular Hemoglobin 30 pg N 27-31 Mean Corpuscular HGB Conc 33 g/dL N 31-36 Red Cell Distribution Width 13 % N 10.5-15 Platelet Count 234 10^3/uL N 150-450 Mean Platelet Volume 9 um3 N 7.4-10.4 RPR 03/31/2014 [facility] Syphilis [place] [address] [phone] RPR Nonreactive N Nonreactive RPR Titer TNP N Pediatric/Maternal YES N PNL No 03/31/2014 [facility] Rubella Nonimmune IU/[place] [address] Screen [phone] Hemoglobin A1c 5.3 % N Less than 6.0 51 Hepatitis B Surface Antigen Nonreactive N Nonreactive 52 GC/Chlamydia Dna 03/31/2014 [facility] GC/Chlamydia Rna (SEE NOTE) [address] [place] [address] [phone] Laboratory test 03/31/2014 [facility] Cytology RUN DATE: [address] [place] [address] <SEE [phone] NOTE> 1 It is recognized that currently available assays for the detection of antibodies to HIV-1 and/or HIV-2 may not detect all infected individuals. HIV antibodies may be undetectable in some stages of the infection and in some clinical conditions. The performance of this assay has not been established for populations of infants or children. Assayed by Chemiluminescence Microparticle Immunoassay on the Siemens Advia Centaur CP. Values obtained with different methods or kits cannot be used interchangeably.The diagnostic specificity of the ADVIA Centaur 1/O/2 Enhanced assay in the low risk population was 99.90% (6052/6058) with a 95% confidence interval of 99.78 to 99.96%. 2 Trichomonas Source: Endocervical 3 RUN DATE: 09/17/14 [facility] LAB LIVE PAGE 1 RUN TIME: [address] [place], [place] [address] Specimen Inquiry Name: TESHA MORROW : [address]: Genna Balbuena [facility] Acct: [id number] Unit: [id number] AGE: 24 Location: [facility] Re09/15/14 SEX: F Status: REG REF SPEC: [id number] MEL: 09/15/[address]: Genna Balbuena [facility] REQ: [id number] RECD: 09/15/14 STATUS: COMP _ SOURCE: MALLIKA/SANJUANITA/RE SPDESC: ORDERED: Jakob Hoffman Strp Scrn QUERIES: Is Patient Penicillin Allergic? N Is patient penicillin allergic and/or sensitivities needed? N Provider Requisition # [id number] Procedure Result Verified Site Group B Strep Culture Screen Final 09/17/14- 0951 ML Group B Strep Screen Negative END OF REPORT * ML=Testing performed at Main Lab DEPARTMENT OF PATHOLOGY, [address] [place] [address] Mitesh Garner M.D. Director [facility] # [id number] 4 SCREEN NEGATIVE FOR OPEN NTD, DOWN SYNDROME AND TRISOMY 18. NT WAS USED IN THE RISK CALCULATIONS. 5 [place] rump length (CRL) was used to calculate gestational age. ELLA, if provided, was not used for gestational age dating. 6 Reference Range: <2.50 IDD <1.90 TWINS <4.00 TWINS IDD <3.50 TRIPLETS <4.50 7 The Sequential Integrated Screen combines KATY-A and hCG with or without a nuchal translucency measurement in the first trimester with AFP, unconjugated estriol, intact hCG and Inhibin A in the second trimester. This provides a useful screening test for detection of open neural tube defects, Down syndrome and Trisomy 18. It should be noted that normal results can never guarantee the of a normal baby and that 2 to 3 percent of newborns have some type of physical or mental defect, many of which are undetectable through any known diagnostic technique. Interpretation reviewed by: Mark Stapleton, Ph.D., [facility] This is a screening test, not a diagnostic test. This risk assessment is based on demographic data provided by the ordering physician. Please notify the laboratory promptly if any data are incorrect. If you have questions concerning this report: For clinical consultation, call ; For technical questions, call ext [phone]; For recalculations, fax to . This test was developed and its performance characteristics have been determined by [facility]. Performance characteristics refer to the analytical performance of the test. 8 For additional information, please refer to http://education.[facility]/faq/FAQ94 (This link is provided for informational/educational purposes only.) 9 RUN DATE: 04/03/14 [facility] LAB LIVE PAGE 1 RUN TIME: [address] [place], [place] [address] Specimen Inquiry Name: TESHA MORROW : [address]: Donna Deshpande NP Acct: [id number] Unit: [id number] AGE: 23 Location: [facility] Re03/31/14 SEX: F Status: REG REF SPEC: [id number] MEL: 03/31/14-[address]: Donna Deshpande NP REQ: [id number] RECD: 03/31/14 STATUS: COMP _ SOURCE: URINE SPDESC: ORDERED: Urine Culture QUERIES: Med[employer] Number [id number] Urine Source: Clean Catch Procedure Result Verified Site Urine Culture Final 04/03/14- 1157 ML Organism 1 LEONIDES VAGINALIS - PRESUMPTIVE [place] Count >100,000 (Many) CFU/ML Organism 2 NORMAL SUZANNE [place] Count 1-10,000 (Few) CFU/ML Gardnerella vaginalis can play a role in extravaginal infections to include the urinary tract. Treatment of choice for local infections is metrondiazole. (Manual of Clinical Microbiology, p.508; Anneliese's Color Schuyler and Textbook of Diagnostic Microbiology, p. 836) END OF REPORT * ML=Testing performed at Main Lab DEPARTMENT OF PATHOLOGY, [address] [place] [address] Mitesh Garner M.D. Director [facility] # [id number] 10 This patient's risk does not exceed the first trimester cut-off for Down syndrome or trisomy 18. The integrated screen calculation is awaiting the second trimester sample. NT WAS USED IN THE RISK CALCULATIONS. Thank you for submitting this patient's Part 1 specimen. These first trimester values will be incorporated with the second trimester values as part of the integrated testing process. Please submit the Part 2 specimen between 04/23/2014-06/17/2014 (15.0 and 22.9 weeks gestation) with 04/23/2014-05/06/2014 (15.0 - 16.9 weeks gestation) being optimal. When submitting Part 2, please include the following Specimen # from Part 1: [id number] 11 [place] rump length (CRL) was used to calculate gestational age. ELLA, if provided, was not used for gestational age dating. 12 Interpretation reviewed by: Kathie Butterfield, Ph.D., [facility]. This is a screening test, not a diagnostic test. This risk assessment is based on demographic data provided by the ordering physician. Please notify the laboratory promptly if any data are incorrect. If you have questions concerning this report: For clinical consultation, call ; For technical questions, call ext [phone]; For recalculations, fax to . This test was developed and its performance characteristics have been determined by [facility]. Performance characteristics refer to the analytical performance of the test. For additional information, please refer to http://[employer].[facility]/faq/FAQ89 (This link is being provided for informational/educational purposes only.) 13 DONNA PACHECO NP For additional information, please refer to http://iAdvize/faq/FAQ89 (This link is being provided for informational/educational purposes only.) 14 For additional information, please refer to http://[employer]/faq/FAQ89 (This link is being provided for informational/educational purposes only.) 15 For additional information, please refer to http://[employer]Adv[employer]/faq/FAQ89 (This link is being provided for informational/educational purposes only.) 16 For additional information, please refer to http://[employer].[facility]/faq/FAQ89 (This link is being provided for informational/educational purposes only.) 17 For additional information, please refer to http://iAdv[employer]/faq/FAQ89 (This link is being provided for informational/educational purposes only.) 18 For additional information, please refer to http://[employer]Adv[employer]/faq/FAQ89 (This link is being provided for informational/educational purposes only.) 19 For additional information, please refer to http://iAdvize/faq/FAQ89 (This link is being provided for informational/educational purposes only.) 20 For additional information, please refer to http://iAdvize/faq/FAQ89 (This link is being provided for informational/educational purposes only.) 21 For additional information, please refer to http://iAdvize/faq/FAQ89 (This link is being provided for informational/educational purposes only.) 22 For additional information, please refer to http://iAdvize/faq/FAQ89 (This link is being provided for informational/educational purposes only.) 23 For additional information, please refer to http://iAdvize/faq/FAQ89 (This link is being provided for informational/educational purposes only.) 24 For additional information, please refer to http://iAdv[employer]/faq/FAQ89 (This link is being provided for informational/educational purposes only.) 25 For additional information, please refer to http://iAdv[employer]/faq/FAQ89 (This link is being provided for informational/educational purposes only.) 26 For additional information, please refer to http://[employer]Adv[employer]/faq/FAQ89 (This link is being provided for informational/educational purposes only.) 27 For additional information, please refer to http://[employer]Adv[employer]/faq/FAQ89 (This link is being provided for informational/educational purposes only.) 28 For additional information, please refer to http://[employer]/faq/FAQ89 (This link is being provided for informational/educational purposes only.) 29 For additional information, please refer to http://[employer]/faq/FAQ89 (This link is being provided for informational/educational purposes only.) 30 For additional information, please refer to http://iAdv[employer]/faq/FAQ89 (This link is being provided for informational/educational purposes only.) 31 For additional information, please refer to http://iAdv[employer]/faq/FAQ89 (This link is being provided for informational/educational purposes only.) 32 For additional information, please refer to http://iAdv[employer]/faq/FAQ89 (This link is being provided for informational/educational purposes only.) 33 For additional information, please refer to http://iAdvize/faq/FAQ89 (This link is being provided for informational/educational purposes only.) 34 For additional information, please refer to http://iAdvize/faq/FAQ89 (This link is being provided for informational/educational purposes only.) 35 For additional information, please refer to http://iAdv[employer]/faq/FAQ89 (This link is being provided for informational/educational purposes only.) 36 For additional information, please refer to http://iAdvize/faq/FAQ89 (This link is being provided for informational/educational purposes only.) 37 For additional information, please refer to http://iAdvize/faq/FAQ89 (This link is being provided for informational/educational purposes only.) 38 For additional information, please refer to http://[employer]Adv[employer]/faq/FAQ89 (This link is being provided for informational/educational purposes only.) 39 For additional information, please refer to http://iAdv[employer]/faq/FAQ89 (This link is being provided for informational/educational purposes only.) 40 For additional information, please refer to http://iAdvize/faq/FAQ89 (This link is being provided for informational/educational purposes only.) 41 For additional information, please refer to http://iAdvize/faq/FAQ89 (This link is being provided for informational/educational purposes only.) 42 For additional information, please refer to http://iAdvize/faq/FAQ89 (This link is being provided for informational/educational purposes only.) 43 44 NEGATIVE; NONE OF THE MUTATIONS LISTED BELOW WERE DETECTED 45 This result does not rule out the presence of a mutation or a diagnosis of cystic fibrosis disease (CF).* The risk for mutations that cause CF other than the ones tested depends greatly on family history, clinical presentation, and ethnicity. Chance of Having a CF Mutation Ethnic Group Detection Before After Negative Rate Test Result Ashkenazi Christian 94% 1 in 24 1 in 400 Non- 88% 1 in 25 1 in 208 -Djiboutian 72% 1 in 46 1 in 164 -Djiboutian 65% 1 in 65 1 in 186 -Djiboutian 49% 1 in 94 1 in 184 Other insufficient data available For assistance with interpretation of these results, please contact your local [facility] genetic counselor or call [employer] ([phone]). 46 G85E (c.254 G>A) 3120+1 G>A(c.2988+1G>A) R334W (c.1000 C>T) 394delTT (c.262_263delTT) V520F (c.1558 G>T) 1717-1 G>A(c.1585-1 G>A) R553X (c.1657 C>T) 1898+1 G>A(c.1766+1 G>A) A6342T(c.3846 G>A) 3659delC (c.3437delC) R347H (c.1040 G>A) 621+1 G>T (c.489+1 G>T) R560T (c.1679 G>C) 3905insT (c.3773_3774insT) C0329A(c.3484 C>T) 2183AA>G (c.2051_2052delAAinsG) K9219O(c.3909 C>G) 711+1 G>T (c.579+1 G>T) R117H (c.350 G>A) Z766fve (c.1519_1521delATC) R347P (c.1040 G>T) 2184delA (c.2052delA) G542X (c.1624 G>T) 3876delA (c.3744delA) A455E (c.1364 C>A) 1078delT (c.948delT) S549N (c.1647 G>A) R808wif (c.1521_1523delCTT) S549R (c.1646 A>C) 2789+5 G>A(c.2657+5 G>A) G551D (c.1652 G>A) 3849+10kb C>T (c.5014-3351 C>T) This assay detects thirty-two mutations, including the twenty-three core mutations recommended by the [place] [employer] (ACMG) and the [place] [employer] (ACOG) for population-based CF carrier screening. Testing for the intron 8 5T polymorphism is performed only when the R117H mutation is detected. Testing for the I506V and I507V polymorphisms is performed only when a homozygous Delta F508 or Delta I507 mutation is detected. In addition to the ACMG/ACOG panel, this assay detects nine additional mutations. While these mutations are rare in the [place] population, the scientific and medical literature indicates that these mutations are not benign polymorphisms. 47 The mutations listed above are detected by an oligonucleotide ligation assay (CORKY) after multiplex- polymerase chain reaction (PCR) amplification of specific CF gene regions. Fluorescent allele-specific reaction products are detected by capillary electrophoresis. Since genetic variation and other factors can affect the accuracy of direct mutation testing, the results of this testing should always be interpreted in light of clinical and familial data. 48 Lori Harris, Ph.D.,[facility] Director, Molecular Genetics The performance characteristics of this assay have been determined by [facility]. Performance characteristics refer to the analytical performance of the test. For more information on this test, go to http://education.[employer]/faq/cfscreen 49 SCREENING 50 It is recognized that currently available assays for the detection of antibodies to HIV-1 and/or HIV-2 may not detect all infected individuals. HIV antibodies may be undetectable in some stages of the infection and in some clinical conditions. The performance of this assay has not been established for populations of infants or children. Assayed by Chemiluminescence Microparticle Immunoassay on the Siemens Advia Centaur CP. Values obtained with different methods or kits cannot be used interchangeably.The diagnostic specificity of the ADVIA Centaur 1/O/2 Enhanced assay in the low risk population was 99.90% (6052/6058) with a 95% confidence interval of 99.78 to 99.96%. 51 Therapeutic target for the treatment of diabetes Mellitus patients is <7% HBA1C, and in selective patients <6.0%.Please refer to [place] [employer] Diabetic care guidelines for further information. 52 YES 53 RUN DATE: 04/03/14 [facility] LAB LIVE PAGE 1 RUN TIME: [address] [place] [address] Specimen Inquiry Name: TESHA MORROW : [address]: Donna Deshpande NP Acct: [id number] Unit: [id number] AGE: 23 Location: [facility] Re03/31/14 SEX: F Status: REG REF SPEC: [id number] MEL: 03/31/14-[address] [facility] [address]: Donna Deshpande NP REQ: [id number] RECD: 03/31/14-153 STATUS: COMP _ SOURCE: ROHIT RUFFINESC: ORDERED: HARPREET/Rubin RNA QUERIES: Medent Number [id number] Procedure Result Verified Site Chlamydia Trachomatis RNA Final 04/03/14- 1341 ML NEGATIVE for Chlamydia trachomatis rRNA GC (N. gonorrhoeae) RNA Final 04/03/14- 1341 ML NEGATIVE for Neisseria gonorrhoeae rRNA A negative result does not preclude the presence of a C. trachomatis or N. gonorrhoeae infection because results are dependent on adequate specimen collection, absence of inhibitors, and sufficient rRNA to be detected. Test results may be affected by improper specimen collection, improper storage, technical error, or specimen mixup. Limitations of the Procedure: The Aptima Combo 2 Assay is not intended for the evaluation of suspected sexual abuse or for other medico-legal indications. For those patients for whom a false positive result may have adverse psychosocial impact, the [facility] recommends retesting by a method using an alternate technology. Therapeutic failure or success cannot be determined with the Aptima Combo 2 Assay since nucleic acid may persist following appropriate antimicrobial therapy. Results from the Aptima Combo 2 Assay should be interpreted in conjunction with other laboratory and clinical data available to the clinican. CONTINUED ON NEXT PAGE * ML=Testing performed at Main Lab DEPARTMENT OF PATHOLOGY, [facility] [place], [place] [address] Mitesh Garner M.D. Director [facility] # [id number] RUN DATE: 04/03/14 [facility] LAB LIVE PAGE 2 RUN TIME: [address] [employer] [place], [place] [address] Specimen Inquiry Patient: TESHA MORROW [id number] (Continued) Specimen: [id number] Collected: 03/31/14 Received: 03/31/14 (Continued) Procedure Result Verified Site GC (N. gonorrhoeae) RNA Final (continued) 04/03/14- 1349 Performance characteristics for detecting C. trachomatis and N. gonorrhoeae are derived from high prevalence populations. Positive results in low prevalence populations should be interpreted carefully with the understanding that the likelihood of a false positive may be higher than a true positive. END OF REPORT * ML=Testing performed at Main Lab DEPARTMENT OF PATHOLOGY, [employer] [place], [place] [address] Mitesh Garnre M.D. Director [facility] # [id number] 54 RUN DATE: 04/01/14 [facility] LAB LIVE PAGE 1 RUN TIME: [address] [employer] [place], [place] [address] Specimen Inquiry Name: TESHA MORROW : [address]: Donna Deshpande NP Acct: [id number] Unit: [id number] AGE: 23 Location: [facility] Re03/31/14 SEX: F Status: REG REF SPEC: [id number] MEL: 03/31/14-[address] [facility] [address]: Donna Deshpande NP REQ: [id number] RECD: 03/31/14707 STATUS: SOUT _ ORDERED: IMAGE ANALYSIS FINAL DIAGNOSIS Negative for Intraepithelial lesion or Malignancy Shift in suzanne suggestive of bacterial vaginosis A. Ectocervical/Endocervical Specimen Adequacy: Satisfactory of evaluation Transformation zone component identified Patient Information: HPV: Thin Layer Pap Test w/reflex to high risk HPV DNA testing when ASCUS Actual Specimen Date: 03/31/14 Last Menstrual Date: 01/09/14 ?: Y Other Pertinent History: Prior Unknown Signed (signature on file) JAMAL Lu (ASCP) 04/01 1147 This Pap test was evaluated with the assistance of the [employer]kLodgep Test Imaging System. Due to cytologic findings at the drier feeder microscope, comprehensive manual rescreening by a Project H[employer] may be required. The Pap Smear is a screening test designed to aid in the detection of premalignant and malignant conditions of the uterine cervix. It is not a diagnostic procedure and should not be used as the sole means of detecting cervical cancer. Both false- positive and false- negative reports do occur. Depending on your risk status, a Pap smear shoudl be obtained and evaluated every 1-3 years. END OF REPORT * ML=Testing performed at Main Lab DEPARTMENT OF PATHOLOGY, [address] [place] [address] Mitesh Garner M.D. Director [facility] # [id number] Procedures Date Code Description Status 11/07/2018 51181 OB Ultrasound First Trimester Completed 04/06/2018 42228 Echography Transvaginal Completed 03/26/2018 81708 OB Ultrasound First Trimester Completed 03/15/2018 27460 OB Ultrasound First Trimester Completed 10/14/2014 30429 Obstetric Care Routine Completed 09/15/2014 59760 Echography Uterus Follow-Up Or Repeat Completed 08/21/2014 04672 Echography Uterus Follow-Up Or Repeat Completed 08/08/2014 69112 Echography Uterus Limited Completed 06/13/2014 29422 Echography Uterus Limited Completed 06/06/2014 88503 Echography Uterus Limited Completed 05/28/2014 90849 Echography Uterus Complete Completed 03/31/2014 56791 Nuchal Translucency Ultrasound /First Gestation Completed Encounters Type Date Location Provider Dx Diagnosis Office Visit 04/06/2018 [facility] Office Dulce Hope, O02.1 Missed 2:00p CNM Office Visit 03/26/2018 [facility] Office Torey Mcdonough, O20.8 Other hemorrhage in 3:45p early Office Visit 03/15/2018 [facility] Office Ladan Mix, O36.80x0 w 2:20p CNM inconclusive viability, unsp Office Visit 03/25/2015 [facility] Office Tamica Cruz, 616.10 Vaginitis & 10:00a ANP-C Vulvovaginitis Unspec v74.5 Screening Examination Venereal Disease Office Visit 08/08/2014 10:14a Delivery Luisa Zambrano MD 644.10 Labor Threatened Other Episode Of Care Unspec Or N/A Plan of Treatment No Information Available
[2018-11-20 15:38] LABS: ABS Basophils 0 10^3/ul (0-0.2); ABS Eosinophils 0.3 10^3/ul (0-0.6); ABS Monocytes 0.8 10^3/ul (0-0.8); ABS Neutrophils 4.3 10^3/ul (1.5-7.7); ABS Nucleated RBC 0 10^3/ul; Eosinophil % 3.9 %; Hematocrit 33 % (33-41); Hemoglobin 11.4 g/dL (12.0-16.0); Mean Corpuscular HGB Conc 34 g/dL (31-36); Mean Corpuscular Hemoglobin 31 pg (27-31); Mean Corpuscular Volume 90 fL (80-97); Mean Platelet Volume 7.7 fL (7.4-10.4); Nucleated Red Blood Cells % 0; Platelet Count 229 10^3/uL (150-450); Red Blood Count 3.73 10^6 /uL (3.70-4.87); Red Cell Distribution Width 13 % (10.5-15); White Blood Count 7.4 10^3/uL (3.5-10.8)
[2018-11-20 15:58] LABS: Albumin 4.4 g/dL (3.2-5.2); Albumin/Globulin Ratio 1.8 (1-3); BUN/Creatinine Ratio 8.7 (8-20); Calcium 9.1 mg/dL (8.6-10.3); EGFR African American 124.4 (>60); EGFR Non-African American 102.8 (>60); Globulin 2.5 g/dL (2-4); Potassium 3.8 mmol/L (3.5-5.0); Total Bilirubin 0.4 mg/dL (0.2-1.0); Total Protein 6.9 g/dL (6.4-8.9)
[2018-11-20] MEDS ORDERED: ceFAZolin 2 GM in NS PREMIX(*) 2 GM/100 ML BAG IVPB ONE (17:49)
[2018-11-20] MEDS ORDERED: Propofol* 10 MG/ML 20 ML BTL ONE (18:35)
[2018-11-20] MEDS ORDERED: Dexamethasone IV* 4 MG/ML 1 ML (4 MG) ONE (18:35)
[2018-11-20] MEDS ORDERED: Lidocaine 2% PF * 5 ML VIAL ONE (18:35)
[2018-11-20] MEDS ORDERED: Ondansetron INJ* 2 MG/ML VIAL ONE (18:35)
[2018-11-20] MEDS ORDERED: fentaNYL* 50 MCG/ML 2 ML VIAL (100 MCG VIAL) ONE ×3 (18:36→20:44)
[2018-11-20] MEDS ORDERED: Midazolam* 1 MG/ML 5 ML VIAL (5 MG) ONE (18:36)
[2018-11-20] MEDS ORDERED: Ondansetron INJ* 2 MG/ML VIAL IV PRN (19:51)
[2018-11-20] MEDS ORDERED: Naloxone* 0.4 MG/ML 1 ML VIAL IV PRN (19:51)
[2018-11-20] MEDS ORDERED: oxyCODONE/Acetamin 5/325 MG* TAB ONE ×3 (20:44→21:56)
[2018-11-20] MEDS: fentaNYL* 50 MCG/ML 2 ML VIAL (100 MCG VIAL) IV PRN ×4 (20:45→22:04)
[2018-11-20] MEDS: oxyCODONE/Acetamin 5/325 MG* TAB PO PRN ×2 (20:46→21:53)
[2018-11-20] MEDS ORDERED: Ibuprofen TAB* 600 MG PO PRN (22:13)
[2018-11-20] MEDS ORDERED: HYDROmorphone INJ1* 1 MG/ML SYRINGE ONE (22:37)
[2018-11-20] MEDS: Lactated Ringers 1000 ML Bag* 1,000 ML IV SCH (23:30)
[2018-11-21] MEDS: oxyCODONE/Acetamin 5/325 MG* TAB PO PRN ×2 (03:48→08:10)
[2018-11-21 05:10] LABS: ABS Basophils 0 10^3/ul (0-0.2); ABS Eosinophils 0 10^3/ul (0-0.6); ABS Lymphocytes 0.9 10^3/ul (1.0-4.8); ABS Monocytes 0.2 10^3/ul (0-0.8); ABS Neutrophils 5.3 10^3/ul (1.5-7.7); ABS Nucleated RBC 0 10^3/ul; Eosinophil % 0 %; Hematocrit 32 % (33-41); Hemoglobin 10.9 g/dL (12.0-16.0); Lymphocyte % 13.5 %; Mean Corpuscular HGB Conc 34 g/dL (31-36); Mean Corpuscular Hemoglobin 31 pg (27-31); Mean Corpuscular Volume 91 fL (80-97); Mean Platelet Volume 7.9 fL (7.4-10.4); Nucleated Red Blood Cells % 0; Platelet Count 200 10^3/uL (150-450); Red Blood Count 3.53 10^6 /uL (3.70-4.87); Red Cell Distribution Width 13 % (10.5-15); White Blood Count 6.4 10^3/uL (3.5-10.8)
[2018-11-21 05:31] LABS: ALT 19 U/L (7-52); AST 14 U/L (13-39); Albumin/Globulin Ratio 1.7 (1-3); Alkaline Phosphatase 45 U/L (34-104); Anion Gap 5 mmol/L (2-11); BUN/Creatinine Ratio 10.8 (8-20); Blood Urea Nitrogen 7 mg/dL (6-24); C Reactive Protein 14.14 mg/L (<8.01); CO2 Carbon Dioxide 25 mmol/L (22-32); Calcium 8.9 mg/dL (8.6-10.3); Chloride 108 mmol/L (101-111); EGFR African American 133.3 (>60); EGFR Non-African American 110.2 (>60); Globulin 2.3 g/dL (2-4); Glucose 184 mg/dL (70-100); Potassium 4.6 mmol/L (3.5-5.0); Sodium 138 mmol/L (135-145); Total Protein 6.3 g/dL (6.4-8.9)
[2018-11-21] MEDS: Lactated Ringers 1000 ML Bag* 1,000 ML IV SCH (08:03)
--- NOTE | 2018-11-21 12:08 | DCNOTE ---
Pt was admitted s/p D&C for retained POC. She underwent repeat D&C on 11/20 without complication. She had continued significant pain right after the procedure and therefore was observed overnight. Her pain has improved though she is still taking some percocet. Her bleeding has almost completely stopped now. She desires discharge to home. Gen: NAD Abd: soft, NT/ND A/P: POD#1 s/p D&C for retained POC, doing well. Plan discharge to home. Will f/u in 3wks with Dr. Mcdonough as scheduled. Reviewed discharge instructions and when to call. All questions answered.
[2018-11-21 12:41] VITALS: BP 104/61
--- NOTE | 2018-11-22 11:47 | OP ---
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 ANESTHESIA: General anesthetic with endotracheal intubation. PRE-OP DIAGNOSIS: Hematometra post dilation and evacuation for missed , possible incomplete . POST-OP DIAGNOSIS: Hematometra post dilation and evacuation for missed , possible incomplete . OPERATIVE PROCEDURE: Dilation and evacuation with suction curettage. ESTIMATED BLOOD LOSS: None. SPECIMENS SENT TO PATHOLOGY: Endometrial curettings. FLUIDS: She received 1 L of IV crystalloid fluid. URINE OUTPUT: Clear at about 200 cc. FINDINGS: The patient was noted to have a uterus that sounded to 10 to 11 cm in an anteverted positi on with moderate amount of bright, dark blood admixed with possible tissue that appeared like product s of conception pending pathology. DESCRIPTION OF PROCEDURE: The patient was taken to the operating room where she was identified. She was placed on the operating table where a general anesthetic with endotracheal intubation was obtain ed without difficulty. She was placed in the dorsal lithotomy position, prepped and draped in a norm al sterile fashion. Attention was then brought onto the patient's perineum where the bladder was cath eterized and drained of clear urine. The catheter was removed from the urethra. A weighted speculum was inserted into the patient's vagina. The cervix was identified and grasped with a single-tooth t enaculum. The uterus was then sounded. It was noted to be in an anteverted position. The patient's cervix was serially dilated using Hegar dilators and through the cervix, a 10 mm curved suction cure tte was introduced up to the fundus. The curette was then attached to suction. A suction curettage was then performed. After the suction curettage, the uterus was deemed to be empty and a sharp curet tage was performed to assure complete denudation of the endometrial cavity. The endometrial cavity w as felt to be completely denuded and at this point, all the instruments were removed from the patient 's vagina. Sponge, lap, and needle counts were correct x2. Specimen was sent to pathology. The pat ient tolerated the procedure well. She was then transferred to recovery room area in [facility]. [id number]/[facility] #: [id number]
== END 2018-11-21 13:10 | disposition home or self-care (01) ==
LOC: ED 14:41 → OR 16:57 → SSU 23:30
PROVIDERS: ADMIT Obstetrics & Gynecology; ATTEND Obstetrics & Gynecology
DX: N85.7 Hematometra (principal); O02.89 Other abnormal products of conception; N93.9 Abnormal uterine and vaginal bleeding, unspecified; R10.9 Unspecified abdominal pain; R50.9 Fever, unspecified; R42 Dizziness and giddiness
CPT/HCPCS: 36415; 76830; 80053; 83690; 84702; 85025; 86140; 86850; 86900; 86901; 87641; 88305; 96372; 96374; 96375; 99284; A9270-GY; G0378; J0690; J1100; J1170; J2250; J2405; J2704; J3010

== ENCOUNTER 2019-02-13 21:00 | Emergency (ER) | payer OTHER ==
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
[2019-02-13 22:22] VITALS: BP 104/66
== END 2019-02-13 22:21 | disposition home or self-care (01) ==
LOC: ED 21:00
DX: S63.501A Unspecified sprain of right wrist, initial encounter (principal); M25.531 Pain in right wrist; Z87.891 Personal history of nicotine dependence; W51.XXXA Accidental striking against or bumped into by another person, initial encounter; Y93.83 Activity, rough housing and horseplay; Y92.9 Unspecified place or not applicable
CPT/HCPCS: 99282

== ENCOUNTER 2019-05-03 19:16 | Emergency (ER) | payer OTHER ==
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
--- NOTE | 2019-05-03 19:40 | ED ---
- HPI Summary HPI Summary: This patient is a 28 year old female presenting to [facility] with a chief complaint of lower abdominal/back pain in . She is three months . The patient states she has been dealing with the pain for 2.5 months and her OBGYN initially stated that it was normal until the pain became worse. She is A2 and is worried about miscarriage. She denies any vaginal bleeding. - History of Current Complaint Chief Complaint: EDAbdPain Stated Complaint: HAVING ALOT OF PAIN PER PT Hx Obtained From: Patient Onset/Duration: Started Weeks Ago Timing: Lasting Weeks Severity: Mild Current Severity: Moderate Pain Intensity: 6 Associated Signs and Symptoms: Positive: Back Pain - Assessment SAB: 0 IEA: 0 Vaginal Bleeding Amount: None - Additional Pertinent History Primary Care Physician: [id number] Maternal Blood Type and Rh: A Positive - Allergies/Home Medications Allergies/Adverse Reactions: Allergies Allergy/AdvReac Type Severity Reaction Status Date / Time No Known Allergies Allergy Verified 05/03/19 19:21 Home Medications: Home Medications Levothyroxine Sodium 50 mcg PO DAILY 05/03/19 [History Confirmed 05/03/19] PMH/Surg Hx/FS Hx/Imm Hx Endocrine/Hematology History: Denies: Hx Anticoagulant Therapy, Hx Diabetes Cardiovascular History: Denies: Hx Hypertension, Hx Pacemaker/ICD Respiratory History: Reports: Hx Asthma - YOUNG CHILD History: Denies: Hx Dialysis Musculoskeletal History: Reports: Hx Scoliosis - SLIGHT Sensory History: Denies: Hx Contacts or Glasses, Hx Hearing Aid, Hx Hearing Problem Opthamlomology History: Denies: Hx Contacts or Glasses Neurological History: Denies: Hx Headaches, Other Neuro Impairments/Disorders Psychiatric History: Reports: Hx Anxiety - Hx OF NONE IN FEW YEARS, Hx Depression, Hx Community Mental Health Tx Denies: Hx Panic Disorder, Hx of Violent Episodes Against Others - Surgical History Surgery Procedure, Year, and Place: 11/16/18 S/P D&C for miscarriage Hx Anesthesia Reactions: - PT WOULD LIKE TO HEAR WHAT ARE THE ANESTHSIA OPTIONS - Immunization History Date of Tetanus Vaccine: UTD Date of Influenza Vaccine: NONE Infectious Disease History: Yes Infectious Disease History: Reports: Hx of Known/Suspected MRSA - [facility], elbow Denies: Traveled Outside the [place] in Last 30 Days - Family History Known Family History: Positive: Other - dad - ETOH abuse - Social History Alcohol Use: Daily Alcohol Amount: every other day Substance Use Type: Reports: None Hx Tobacco Use: No Smoking Status (MU): Former Smoker Have You Smoked in the Last Year: No Review of Systems Positive: Abdominal Pain, Nausea Positive: other - Denies vaginal bleeding Positive: Other - Backpain All Other Systems Reviewed And Are Negative: Yes Physical Exam - Summary Physical Exam Summary: Appearance: Well-appearing, Well-nourished, lying in bed comfortably Skin: Warm, dry, no obvious rash Eyes: sclera anicteric, no conjunctival pallor ENT: mucous membranes moist, pharynx appears normal Neck: Supple, nontender Respiratory: Clear to auscultation, no signs of respiratory distress Cardiovascular: Normal S1, S2. No murmurs. Normal distal pulses in tibial and radial bilaterally. Abdomen: Soft, nontender, normal active bowel sounds present Musculoskeletal: Normal, Strength/ROM Intact Neurological: A&Ox3, awake and alert, mentation is normal, speech is fluent and appropriate Psychiatric: affect is normal, does not appear anxious or depressed - Physical Exam Triage Information Reviewed: Yes Vital Signs On Initial Exam: Temp Pulse Resp BP Pulse Ox 98.5 F 75 16 116/70 100 05/03/19 19:17 05/03/19 19:17 05/03/19 19:17 05/03/19 19:17 05/03/19 19:17 Vital Signs Reviewed: Yes - Vaginal Assessment Presentation Comment: not examined Procedures - Sedation Patient Received Moderate/Deep Sedation with Procedure: No Diagnostics - Vital Signs Vital Signs Temp Pulse Resp BP Pulse Ox 05/03/19 19:17 98.5 F 75 16 116/70 100 - Laboratory Result Diagrams: 05/03/19 20:02 05/03/19 20:02 Lab Statement: Any lab studies that have been ordered have been reviewed, and results considered in the medical decision making process. - Ultrasound No standard instances Ultrasound Interpretation Completed By: ED Physician Summary of Ultrasound Findings: Bedside Screening US: Developing embryo in the uterus with a visible heartbeat. Course/Dx - Course Course Of Treatment: This patient is a 28 year old female presenting to [facility] with a chief complaint of lower abdominal/back pain in . screening bedside US revealed developing embryo in the uterus with a visible heartbeat. A plan for discharge was discussed with the patient and she was agreeable with this plan. - Diagnoses Provider Diagnoses: Discharge ED - Sign-Out/Discharge Documenting (check all that apply): Patient Departure - Discharge Patient Received Moderate/Deep Sedation with Procedure: No - Discharge Plan Condition: Good Disposition: HOME Patient Education Materials: (ED) Referrals: Doug Bustos JR, DO [Doctor of Osteopathy] - Additional Instructions: Contact the OB office on Monday for followup. We did not find any significant abnormalities on your blood or urine tests, and on my bedside ultrasound the baby is in the proper position and has an active heartbeat, so looks ok for now. - Billing Disposition and Condition Condition: GOOD Disposition: Home - Attestation Statements Document Initiated by [place]: Yes Documenting Scribe: Jeffery Louis Provider For Whom Phoenix is Documenting (Include Credential): Georgi Gill MD Scribe Attestation: Jeffery Stern, scribed for Georgi Gill MD on 05/09/19 at 1849. Scribe Documentation Reviewed: Yes Provider Attestation: The documentation as recorded by the Jeffery vigil accurately reflects the service I personally performed and the decisions made by me, Georgi Gill MD Status of Scribaxel Document: Viewed
[2019-05-03 20:12] LABS: ABS Basophils 0.1 10^3/ul (0-0.2); ABS Eosinophils 0.2 10^3/ul (0-0.6); ABS Lymphocytes 2.9 10^3/ul (1.0-4.8); ABS Monocytes 0.8 10^3/ul (0-0.8); ABS Neutrophils 6.6 10^3/ul (1.5-7.7); Eosinophil % 2.1 %; Hematocrit 34 % (35-47); Hemoglobin 12.2 g/dL (12.0-16.0); Lymphocyte % 27.4 %; Mean Corpuscular HGB Conc 36 g/dL (31-36); Mean Corpuscular Hemoglobin 32 pg (27-31); Mean Corpuscular Volume 89 fL (80-97); Mean Platelet Volume 8.3 fL (7.4-10.4); Platelet Count 239 10^3/uL (150-450); Red Cell Distribution Width 13 % (10-15); White Blood Count 10.6 10^3/uL (3.5-10.8)
[2019-05-03 20:26] LABS: Urine Appearance Cloudy; Urine Bacteria Absent (Absent); Urine Bilirubin Negative (Negative); Urine Blood Negative (Negative); Urine Color Yellow; Urine Glucose Negative (Negative); Urine Ketones Negative (Negative); Urine Nitrite Negative (Negative); Urine Protein Negative (Negative); Urine Red Blood Cell 1+(3-5/hpf) (Absent); Urine Specific Gravity 1.017 (1.010-1.030); Urine Squamous Epithelial Cell Present (Absent); Urine Urobilinogen Negative (Negative); Urine White Blood Cell Trace(0-5/hpf) (Absent)
[2019-05-03 20:29] LABS: Albumin 4.3 g/dL (3.2-5.2); Albumin/Globulin Ratio 1.8 (1-3); BUN/Creatinine Ratio 9.9 (8-20); Calcium 9.4 mg/dL (8.6-10.3); EGFR African American 120.4 (>60); EGFR Non-African American 99.5 (>60); Globulin 2.4 g/dL (2-4); Potassium 3.5 mmol/L (3.5-5.0); Total Bilirubin 0.5 mg/dL (0.2-1.0); Total Protein 6.7 g/dL (6.4-8.9)
[2019-05-03 21:40] VITALS: BP 119/57
== END 2019-05-03 21:40 | disposition home or self-care (01) ==
LOC: ED 19:16
DX: O26.899 Other specified pregnancy related conditions, unspecified trimester (principal); R10.30 Lower abdominal pain, unspecified; M54.9 Dorsalgia, unspecified; Z3A.00 Weeks of gestation of pregnancy not specified; Z87.891 Personal history of nicotine dependence; Z79.890 Hormone replacement therapy
CPT/HCPCS: 36415; 80053; 81003; 81015; 85025; 87086; 99282

== ENCOUNTER 2019-08-11 13:24 | Emergency (ER) | payer OTHER ==
--- NOTE | 2019-08-11 14:52 | PN ---
Progress Note - Progress Note Date of Service: 08/11/19 Note: Called by ED PA to assess patient who presents with abdominal pain at 23w6d gestation. Pt reports that she has not had a bowel movement in 2 days, reports that last bowel movement and several prior have been very painful with small hard stools. Pt has Hx of prior full term . Denies fever, chills, n/v, cp, sob. Denies change in discharge, vaginal bleeding, LOF. Endorses + FM. Bedside doppler with FH 130-150bpm. Abdominal exam is benign, no rebound, no guarding, no palpable contractions. Cervix is long/thick and closed, there is a large amount of palpable stool in the rectal vault. There is no abnormal discharge, LOF or vaginal bleeding. Presentation is highly suspicious for constipation. Low suspicion for PTL. Will prescribe Miralax and Colace. Patient instructed to start both today, once constipation has resolved, OK to stop Miralax, but continue with colace. If constipation recurrs, re-start Miralax. Pt has follow up appointment in office on of this week. DO BESSIE Hidalgo
--- NOTE | 2019-08-11 14:56 | ED ---
- HPI Summary HPI Summary: Patient is a 28-year-old female who presents emergency department for lower sharp abdominal pain that started this morning. Patient is currently 24 weeks gestation. A2. Patient has been following with commercial account executive at [facility] and has had no complications so far. Patient states pain is across her lower abdomen and sharp in nature. She denies any vaginal discharge or bleeding. She denies fever, vomiting or diarrhea, dysuria. Last bowel movement 2-3 days ago. Symptoms are moderate in severity. No current modifying factors. - History of Current Complaint Chief Complaint: EDAbdPain Stated Complaint: 24WKS PREG ABD PAIN PER PT Time Seen by Provider: 08/11/19 13:51 Hx Obtained From: Patient Pain Intensity: 5 - Assessment SAB: 0 IEA: 0 - Additional Pertinent History Primary Care Physician: [id number] Maternal Blood Type and Rh: A Positive - Allergies/Home Medications Allergies/Adverse Reactions: Allergies Allergy/AdvReac Type Severity Reaction Status Date / Time No Known Allergies Allergy Verified 08/11/19 13:30 PMH/Surg Hx/FS Hx/Imm Hx Previously Healthy: Yes Endocrine/Hematology History: Denies: Hx Anticoagulant Therapy, Hx Diabetes Cardiovascular History: Denies: Hx Hypertension, Hx Pacemaker/ICD Respiratory History: Reports: Hx Asthma - YOUNG CHILD History: Denies: Hx Dialysis Musculoskeletal History: Reports: Hx Scoliosis - SLIGHT Sensory History: Denies: Hx Contacts or Glasses, Hx Hearing Aid, Hx Hearing Problem Opthamlomology History: Denies: Hx Contacts or Glasses Neurological History: Denies: Hx Headaches, Other Neuro Impairments/Disorders Psychiatric History: Reports: Hx Anxiety - Hx OF NONE IN FEW YEARS, Hx Depression, Hx Community Mental Health Tx Denies: Hx Panic Disorder, Hx of Violent Episodes Against Others - Surgical History Surgery Procedure, Year, and Place: 11/16/18 S/P D&C for miscarriage Hx Anesthesia Reactions: - PT WOULD LIKE TO HEAR WHAT ARE THE ANESTHSIA OPTIONS - Immunization History Date of Tetanus Vaccine: UTD Date of Influenza Vaccine: NONE Infectious Disease History: No Infectious Disease History: Reports: 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, elbow Denies: Traveled Outside the [place] in Last 30 Days - Family History Known Family History: Positive: Other - dad - ETOH abuse, Non-Contributory - Social History Occupation: Unemployed Lives: With Family Alcohol Use: None Alcohol Amount: every other day Substance Use Type: Reports: None Hx Tobacco Use: No Smoking Status (MU): Former Smoker Have You Smoked in the Last Year: No Review of Systems Constitutional: Negative Negative: Fever Cardiovascular: Negative Respiratory: Negative Positive: Abdominal Pain. Negative: Vomiting, Diarrhea Genitourinary: Negative Negative: dysuria, discharge All Other Systems Reviewed And Are Negative: Yes Physical Exam - Physical Exam Triage Information Reviewed: Yes Vital Signs Reviewed: Yes Appearance: Positive: Well-Appearing - Patient sitting in bed in no acute distress. Significant other present. Skin: Positive: Warm, Dry Head/Face: Positive: Normal Head/Face Inspection Eyes: Positive: Normal, EOMI, DUSTIN Neck: Positive: Supple Respiratory/Lung Sounds: Positive: Clear to Auscultation, Breath Sounds Present Cardiovascular: Positive: Normal, RRR Abdomen Description: Positive: Other: - Gravid appearing. Abdomen is soft and nontender to palpation. Neurological: Positive: Normal, CN Intact II-III Psychiatric: Positive: Affect/Mood Appropriate - Vaginal Assessment Presentation Comment: not examined Procedures - Sedation Patient Received Moderate/Deep Sedation with Procedure: No Diagnostics - Vital Signs Vital Signs Temp Pulse Resp BP Pulse Ox 08/11/19 13:28 98.4 F 83 16 114/80 100 - Laboratory Lab Statement: Any lab studies that have been ordered have been reviewed, and results considered in the medical decision making process. Course/Dx - Course Course Of Treatment: Patient presenting with lower abdominal pain and second trimester . She's had no vaginal discharge or bleeding. heart tones were detected at 130 bpm to 150 bpm. Urinalysis negative for infection. On-call OB consult, Dr. Bustos, who actually examined patient in the ER and checked her cervix which was found to be closed. He suspect patient's pain is secondary to constipation. He wrote patient prescriptions for MiraLAX and Colace. Patient has appointment with OB next week. She'll return to ER symptoms change or worsen. - Differential Diagnosis/HQI/PQRI: Threatened , Pre-term Labor, UTI - Diagnoses Provider Diagnoses: Abdominal pain in , Constipation Discharge ED - Sign-Out/Discharge Documenting (check all that apply): Patient Departure - Discharge Plan Condition: Good Disposition: HOME Prescriptions: Docusate Sodium [Colace] 100 mg PO BID 30 Days #60 capsule MDD 2 Polyethylene Glycol 3350 [Miralax] 17 gm PO DAILY 7 Days #7 [email or web address] Patient Education Materials: Constipation (ED), Abdominal Pain in (ED ) Referrals: Colette Lucas MD [Primary Care Provider] - Additional Instructions: Follow up with OB next week as scheduled Take constipation medications prescribed by Dr. Bustos as directed Increase fluids and fiber in diet Return to ER for increased pain, vaginal bleeding/discharge or if concerned - Billing Disposition and Condition Condition: GOOD Disposition: Home
[2019-08-11 15:14] VITALS: BP 110/59
[2019-08-11 15:17] LABS: Urine Appearance Cloudy; Urine Bilirubin Negative (Negative); Urine Blood Negative (Negative); Urine Color Straw; Urine Glucose Negative (Negative); Urine Ketones Negative (Negative); Urine Nitrite Negative (Negative); Urine Protein Negative (Negative); Urine Specific Gravity 1.003 (1.010-1.030); Urine Urobilinogen Negative (Negative)
[2019-08-11 15:20] LABS: Urine Bacteria Absent (Absent); Urine Red Blood Cell Absent (Absent); Urine Squamous Epithelial Cell Present (Absent); Urine White Blood Cell Trace(0-5/hpf) (Absent)
== END 2019-08-11 15:46 | disposition home or self-care (01) ==
LOC: ED 13:24
DX: O26.892 Other specified pregnancy related conditions, second trimester (principal); K59.00 Constipation, unspecified; R10.30 Lower abdominal pain, unspecified; Z3A.23 23 weeks gestation of pregnancy; Z87.891 Personal history of nicotine dependence
CPT/HCPCS: 81003; 81015; 87086; 99282

== ENCOUNTER 2019-11-18 15:39 | Inpatient (IN) | payer OTHER ==
[2019-11-18] MEDS ORDERED: Lactated Ringers 1000 ML Bag* 1,000 ML IV ONE (16:01)
[2019-11-18] MEDS ORDERED: Buffered Lidocaine 1% SYRIN* 1 ML/SYRINGE INTRADERM ONE (16:01)
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
[2019-11-18 16:48] LABS: ABS Basophils 0.1 10^3/ul (0-0.2); ABS Eosinophils 0.2 10^3/ul (0-0.6); ABS Lymphocytes 2.7 10^3/ul (1.0-4.8); ABS Neutrophils 11.6 10^3/ul (1.5-7.7); Eosinophil % 1.5 %; Hematocrit 31 % (35-47); Hemoglobin 10.3 g/dL (12.0-16.0); Mean Corpuscular HGB Conc 34 g/dL (31-36); Mean Corpuscular Hemoglobin 28 pg (27-31); Mean Corpuscular Volume 85 fL (80-97); Mean Platelet Volume 9.2 fL (7.4-10.4); Platelet Count 282 10^3/uL (150-450); Red Blood Count 3.61 10^6 /uL (3.70-4.87); Red Cell Distribution Width 13 % (10-15); White Blood Count 15.6 10^3/uL (3.5-10.8)
[2019-11-18] MEDS ORDERED: Lactated Ringers 1000 ML Bag* 1,000 ML IV SCH (17:00)
[2019-11-18 17:06] LABS: Urine Benzodiazepine Screen None Detected (None Detect); Urine Opiates Screen None Detected (None Detect)
--- NOTE | 2019-11-18 21:09 | PN ---
Progress Note - Progress Note Date of Service: 11/18/19 Note: S: Breathing through contractions, but feels they have spaced out a little O: B/P: 113/64, P: 72, R: 18, T: 98.2 FHR: 130s by intermittent auscultation UCs: q 3-6 min by palpation, moderate VE deferred A: IUP at 38 2/7 weeks Category I FHR, no evidence of metabolic acidemia GBS negative P: Would like epidural at some point but not ready yet Dr. Madrid in house and aware Reassess PRN Anticipate SVB
--- NOTE | 2019-11-18 21:38 | PN ---
Progress Note - Progress Note Date of Service: 11/18/19 Note: Quick note: Tesha requests epidural. Dr. Madrid paged. Will reassess once comfortable. Anticipate SVB
[2019-11-18] MEDS ORDERED: OBEPIDURAL* 250 ML EPIDURAL ONE (21:44)
--- NOTE | 2019-11-19 01:14 | PN ---
Progress Note - Progress Note Date of Service: 11/19/19 Note: S: Has been sleeping. Comfortable s/p epidural placement. Partner at bedside, also sleeping O:B/P 96/51, P: 63, R: 18, T: 98.2 FHR: baseline 120, moderate variability, + accelerations, no decelerations UCs: q4-6 min, moderate VE: 5.5/90/-1. Lots of bloody show noted A: IUP at 38 2/7 weeks Category I FHR, no evidence of metabolic acidemia Active labor P: PARQ discussion re: augmentation with low-dose pitocin. Tesha agrees Pitocin per protocol Reassess PRN Anticipate SVB
[2019-11-19] MEDS ORDERED: Oxytocin in LR* 20 UNITS/1,000 ML BAG IVPB SCH ×2 (02:00→07:00)
[2019-11-19] MEDS ORDERED: Dibucaine 1% 28.35 GM TUBE PR PRN (06:10)
[2019-11-19] MEDS ORDERED: Glycerin ADULT SUPP PR PRN (06:10)
[2019-11-19] MEDS ORDERED: Witch Hazel PAD* JAR TOPICAL PRN (06:10)
[2019-11-19] MEDS ORDERED: Acetaminophen TAB* 325 MG PO PRN (06:10)
--- NOTE | 2019-11-19 06:17 | PROCNOTE ---
[facility] OB: Delivery Note - Delivery A Date of : 11/19/19 Time of : 05:47 [place] Sex: Male Score 1 Minute: 9 Score 5 Minutes: 9 Gestational Age in Weeks and Days at Delivery: 38 Weeks and 2 Days Delivery Method: Spontaneous Vaginal Labor: Spontaneous Did Patient attempt ?: N/A, No Previous Amniotic Fluid: Clear Estimated Blood Loss: 400 Anesthesia/Analgesia: CEI for Labor Delivered By: Adamaris Chase - Nursery Level of Nursery: Regular/Bedside - Perineum Perineal Injury: None/Intact Perineal Repair: None - Events Delivery Events of Note: Pitocin During Labor - Additional Delivery Notes Additional Delivery Notes: in spontaneous labor received CEI per request with good relief. Labor was augmented with low dose pitocin. Experienced SROM to clear fluid at 0430. Progressed to complete and complete, began pushing at 0525 with good maternal effort. Slow controlled delivery of head OA to STEFANIA at 0547, tight nuchal cord x 1, shoulders delivered easily with next push. Male infant somersaulted through cord, delivered to maternal abdomen. HR >110, vigorous with spontaneous cry. Apgars 9 and 9. Pitocin increased to 250 cc/hr for active management of third stage. Cord doubly clamped and cut by infants father once pulsations ceased. Placenta delivered at 0603 via emily, a few blood clots with placenta but then fundus firm with massage. Perineum intact, small right periurethral and periclitoral lacerations noted, hemostatic and no repair needed. Mother and infant stable at time of note, feeding plan is formula. EBL = 400, infant weight pending for skin to skin.
[2019-11-19] MEDS ORDERED: Lactated Ringers 1000 ML Bag* 1,000 ML IV SCH ×2 (07:00→10:00)
[2019-11-19] MEDS ORDERED: Lidocaine 1% MPF ** 5 ML VIAL ONE (07:09)
[2019-11-19] MEDS: Levothyroxine TAB* 50 MCG TAB PO SCH (07:18)
[2019-11-19] MEDS ORDERED: Lactated Ringers 1000 ML Bag* 1,000 ML IV ONE (09:15)
[2019-11-19] MEDS ORDERED: Famotidine TAB* 20 MG PO PRN (09:15)
[2019-11-19] MEDS ORDERED: Sodium Citrate/Citric Acid* 15 ML UDC PO PRN (09:15)
[2019-11-19] MEDS: Ibuprofen TAB* 600 MG PO SCH ×3 (09:37→21:44)
[2019-11-19] MEDS: Docusate CAP* 100 MG PO SCH ×3 (09:38→22:00)
[2019-11-19] MEDS: Simethicone TAB* 80 MG TAB.CHEW PO SCH ×4 (09:43→22:00)
[2019-11-19] MEDS: Sertraline* 25 MG TAB PO SCH (09:43)
[2019-11-19] MEDS ORDERED: OBEPIDURAL* 250 ML EPIDURAL SCH (10:00)
[2019-11-19] MEDS: Ferrous Gluconate TAB* 324 MG TAB PO SCH (22:39)
[2019-11-20 06:16] LABS: ABS Eosinophils 0.3 10^3/ul (0-0.6); ABS Lymphocytes 2.7 10^3/ul (1.0-4.8); ABS Monocytes 0.8 10^3/ul (0-0.8); ABS Neutrophils 6.7 10^3/ul (1.5-7.7); Eosinophil % 2.5 %; Hematocrit 23 % (35-47); Hemoglobin 7.8 g/dL (12.0-16.0); Lymphocyte % 25.5 %; Mean Corpuscular HGB Conc 34 g/dL (31-36); Mean Corpuscular Hemoglobin 29 pg (27-31); Mean Corpuscular Volume 86 fL (80-97); Mean Platelet Volume 8.8 fL (7.4-10.4); Nucleated Red Blood Cells % 0.1; Platelet Count 220 10^3/uL (150-450); Red Cell Distribution Width 13 % (10-15); White Blood Count 10.4 10^3/uL (3.5-10.8)
[2019-11-20] MEDS: Levothyroxine TAB* 50 MCG TAB PO SCH (07:14)
[2019-11-20] MEDS: Ibuprofen TAB* 600 MG PO SCH ×3 (07:15→14:26)
[2019-11-20] MEDS: Docusate CAP* 100 MG PO SCH ×2 (08:44→14:26)
[2019-11-20] MEDS ORDERED: Tetan/Diph/Pertus SYR(Tdap)* 0.5 ML SYR(BOOSTRIX) use SYR contains LATEX IM ONE (08:44)
[2019-11-20] MEDS: Sertraline* 25 MG TAB PO SCH (08:44)
[2019-11-20] MEDS: Ferrous Gluconate TAB* 324 MG TAB PO SCH (08:45)
[2019-11-20 09:07] VITALS: BP 114/59
== END 2019-11-20 14:57 | disposition home or self-care (01) | DRG 560 ==
LOC: MCHOBOUT 15:39 → MCHOB 15:59
PROVIDERS: ADMIT Midwife; ATTEND Midwife
PROC: 10E0XZZ Delivery of Products of Conception, External Approach (ICD-10-PCS; principal; 2019-11-19)
DX: O99.284 Endocrine, nutritional and metabolic diseases complicating childbirth (principal); Z37.0 Single live birth; E03.9 Hypothyroidism, unspecified; O99.344 Other mental disorders complicating childbirth; F32.9 Major depressive disorder, single episode, unspecified; O99.52 Diseases of the respiratory system complicating childbirth; O69.81X0 Labor and delivery complicated by cord around neck, without compression, not applicable or unspecified; Z3A.38 38 weeks gestation of pregnancy; O90.81 Anemia of the puerperium; D64.9 Anemia, unspecified; J45.909 Unspecified asthma, uncomplicated
CPT/HCPCS: 36415; 80307; 85025; 86850; 86900; 86901; A9270-GY; G0480

== ENCOUNTER 2019-11-25 12:32 | Day surgery (SDC) | payer OTHER ==
--- OUTSIDE RECORDS SUMMARY | 2019-11-25 12:42 | XMS REPORT | Continuity of Care Document ---
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 Thyroiditis Torey Mcdonough MD Onset: 02/28/2019 Multigravida Genna Balbuena CNM Onset: 06/14/2019 Social History Type Date Description Comments Sex Unknown Tobacco Use Start: Unknown Never Smoked Cigarettes Smoking Status Reviewed: 02/15/19 Never Smoked Cigarettes ETOH Use Alcohol Use Prior To 3 per week Recreational Drug Use Denies Drug Use Tobacco Use Start: Unknown Patient has never smoked Exercise Type/Frequency Exercises regularly Seat Belt/Car Seat Always uses seat belt Allergies, Adverse Reactions, Alerts Description No Known Drug Allergies Medications Active Medications SIG Qnty Indications Ordering Date Provider Sertraline HCL take 1/2 tablet 90tabs Winsome Henderson 10/14/2019 25mg daily for one Carla, CNM Tablets week, increase to 1 full tablet daily starting week 2, Hydroxyzine HCL 1-2 tabs by mouth 30tabs Ladan Mix, 05/15/2019 25mg up to 4 times CNM Tablets daily for anxiety Levothyroxine Sodium Take One Tablet 60tabs Torey Mcdonough, 02/15/2019 By Mouth Every MD 50mcg Tablets Day Flintstones Complete 1 by mouth twice Unknown 60mg a day Chewtabs Medications Administered in Office Medication SIG Qnty Indications Ordering Provider Date PT SCRN Tbco Id as Non User Torey Mcdonough MD 02/15/2019 Injection PT SCRN Tbco Id as Non User Torey Mcdonough MD 12/11/2018 Injection PT SCRN Tbco Id as Non User Dulce Hope CNM 11/07/2018 Injection PT SCRN Tbco Id as Non User Dulce Hope CNM 04/06/2018 Injection PT SCRN Tbco Id as Non User Torey Mcdonough MD 03/26/2018 Injection Immunizations CPT Code Status Date Vaccine Lot # [id number] Given 09/11/2019 Tetnus, Diptheria Toxoids And Acellular Pertussis, [id number] PT > 7Yrs Old [id number] Given 05/13/2019 Influenza Vaccine Quadrivalent Preser/Antibiotic [id number] Free [place] Use [address]59 Given 07/07/2014 Tetnus, Diptheria Toxoids And Acellular Pertussis, [id number] PT > 7Yrs Old Vital Signs Date Vital Result Comment 05/13/2019 12:38pm BP Systolic 116 mmHg BP Diastolic 66 mmHg Height 67 inches 5'7" Weight 143.00 lb BMI (Body Mass Index) 22.4 kg/m2 Last Menstrual Period 1310895 4 Parity 1 02/15/2019 7:56am BP Systolic 118 mmHg BP Diastolic 68 mmHg Height 67 inches 5'7" Weight 145.00 lb BMI (Body Mass Index) 22.7 kg/m2 Last Menstrual Period 5626628 3 Parity 1 Results Test Acquired Date Facility Test Result H/L Range Note Laboratory test 09/11/2019 [facility] Glucose 1 HR 60 mg/dL Low 70-160 1 [place] [address] Post Prandial [phone] CBC With No Diff 09/11/2019 [facility] White Blood 16.9 High 3.5-10.8 [place] [address] Count 10^3/uL [phone] Red Blood Count 3.58 10^6/uL Low 3.70-4.87 Hemoglobin 11.0 g/dL Low 12.0-16.0 Hematocrit 33 % Low 35-47 Mean Corpuscular Volume 91 fL Normal 80-97 Mean Corpuscular Hemoglobin 31 pg Normal 27-31 Mean Corpuscular HGB Conc 34 g/dL Normal 31-36 Red Cell Distribution Width 13 % Normal 10-15 Platelet Count 281 10^3/uL Normal 150-450 Mean Platelet Volume 8.9 fL Normal 7.4-10.4 Laboratory test 08/24/2019 [facility] [place] [address] Fibronectin [phone] Urinalysis 08/24/2019 [facility] [place] [address] [phone] Urine Appearance Clear Urine Specific Whatley 1.019 Normal 1.010-1.030 Urine pH 6.0 Normal 5-9 Urine Urobilinogen Negative Negative Urine Ketones Trace Abnormal Negative Urine Protein Negative Negative Urine Leukocytes Negative Negative Urine Blood Negative Negative Urine Nitrite Negative Negative Urine Bilirubin Negative Negative Urine Glucose Negative Negative Drug Screen 08/24/2019 [facility] Urine None Detected None [place] [address] Hydrocodone [facility] [phone] Screen Urine Oxycodone Screen None Detected None Detect Urine Fentanyl Screen None Detected None Detect Urine Methadone Screen None Detected None Detect Urine Buprenorphine Screen None Detected None Detect Urine Amphetamine Screen None Detected None Detect Urine Barbiturates Screen None Detected None Detect Urine Benzodiazepine Screen None Detected None Detect Urine Cannabinoids Screen None Detected None Detect Urine Cocaine Screen None Detected None Detect Urine Opiates Screen None Detected None Detect Urine Phencyclidine Screen None Detected None Detect 2 CBC Auto 08/24/2019 [facility] White Blood 15.8 10^3/uL High 3.5-10.8 [place] [address] Count [phone] Red Blood Count 3.59 10^6/uL Low 3.70-4.87 Hemoglobin 11.5 g/dL Low 12.0-16.0 Hematocrit 33 % Low 35-47 Mean Corpuscular Volume 91 fL Normal 80-97 Mean Corpuscular Hemoglobin 32 pg High 27-31 Mean Corpuscular HGB Conc 35 g/dL Normal 31-36 Red Cell Distribution Width 13 % Normal 10-15 Platelet Count 277 10^3/uL Normal 150-450 Mean Platelet Volume 8.6 fL Normal 7.4-10.4 Abs Neutrophils 12.2 10^3/uL High 1.5-7.7 Abs Lymphocytes 2.3 10^3/uL Normal 1.0-4.8 Abs Monocytes 0.8 10^3/uL Normal 0-0.8 Abs Eosinophils 0.3 10^3/uL Normal 0-0.6 Abs Basophils 0.2 10^3/uL Normal 0-0.2 Abs Nucleated RBC 0.0 10^3/uL Granulocyte % 77.3 % Lymphocyte % 14.7 % Monocyte % 5.2 % Eosinophil % 1.8 % Basophil % 1.0 % Nucleated Red Blood Cells % 0.0 Comp Metabolic 08/24/2019 [facility] Sodium 135 mmol/L Normal 135-145 [place] [address] [phone] Potassium 3.9 mmol/L Normal 3.5-5.0 Chloride 104 mmol/L Normal 101-111 Co2 Carbon Dioxide 26 mmol/L Normal 22-32 Anion Gap 5 mmol/L Normal 2-11 Glucose 99 mg/dL Normal 70-100 Blood Urea Nitrogen 6 mg/dL Normal 6-24 Creatinine 0.60 mg/dL Normal 0.51-0.95 BUN/Creatinine Ratio 10.0 Normal 8-20 Calcium 8.9 mg/dL Normal 8.6-10.3 Total Protein 6.7 g/dL Normal 6.4-8.9 Albumin 3.8 g/dL Normal 3.2-5.2 Globulin 2.9 g/dL Normal 2-4 Albumin/Globulin Ratio 1.3 Normal 1-3 Total Bilirubin 0.30 mg/dL Normal 0.2-1.0 Alkaline Phosphatase 57 U/L Normal 34-104 Alt 7 U/L Normal 7-52 Ast 10 U/L Low 13-39 Egfr Non- 120.8 >60 Egfr 146.2 >60 3 Type And Screen 08/24/2019 [facility] Patient [place] [address] [phone] Antibody Screen NEGATIVE Laboratory test finding 06/14/2019 [facility] PDF Report SEE IMAGE [id number] Sequential Integrated 06/14/2019 [facility] Interpretation: SEE NOTE 4 Screen, Part 2([place]) Risk for Ontd 1:450 Age Risk Down Syndrome 1:950 JENNIFER Down Syndrome Risk <1:5000 <1:270 JENNIFER Trisomy 18 Risk <1:5000 <1:100 Calc'd Gestational Age 15.7 5 Afp, Serum 63.2 ng/mL Afp MoM 1.96 6 hCG, Serum 48.5 IU/mL hCG MoM 1.29 Estriol, Free 0.76 ng/mL Estriol MoM 1.05 Inhibin A, Dimeric 180 pg/mL Inhibin A MoM 1.01 Katy-A 742.9 ng/mL 7 Katy-A MoM 1.28 NT MoM 0.94 8 Referring Physician Name RHIANNA Referring Physician Phone ON TEST REQ ABOV <SEE NOTE> 9 Referring Physician Npi [id number] Specimen # from Part 1 [id number] Date of 1990 Collection Date 06/14/2019 Maternal Weight 143 lbs Est'd Date of Delivery 11/29/2019 Nuchal Translucency 1.1 mm Juncal Rump Length 46 mm Ultrasound Date 05/13/2019 Nasal Bone NOT ASSESSED Mother's Ethnic Origin Insulin Depend Diabetic NO Repeat Specimen NO Number of Fetuses 1 Hx Of Neural Tube Defects NO Cigarette smoker NOT GIVEN Twin B Nasal Bone NOT GIVEN 10 Drug Screen 06/14/2019 [facility] Urine None Detected None [place] [address] Hydrocodone Clinic [phone] Screen Urine Oxycodone Screen None Detected None Detect Urine Fentanyl Screen None Detected None Detect Urine Methadone Screen None Detected None Detect Urine Buprenorphine Screen None Detected None Detect Urine Amphetamine Screen None Detected None Detect Urine Barbiturates Screen None Detected None Detect Urine Benzodiazepine Screen None Detected None Detect Urine Cannabinoids Screen None Detected None Detect Urine Cocaine Screen None Detected None Detect Urine Opiates Screen None Detected None Detect Urine Phencyclidine Screen None Detected None Detect 11 Urine Culture And 05/13/2019 [facility] Urine Culture SEE RESULT 12 [place] [address] BELOW [phone] GC/Chlamydia Dna 05/13/2019 [facility] Chlamydia [place] [address] trachomatis [phone] Jessika Neisseria gonorrhoeae (GC) Jessika Negative Negative Laboratory test 05/13/2019 [facility] Cytology SEE RESULT 13 [place] [address] BELOW [phone] Laboratory test 05/13/2019 [facility] TSH 0.87 mcIU/mL Normal 0.34-5 14 [place] [address] .60 [phone] T4 Free 0.86 ng/dL Normal 0.61-1.12 15 Parvovirus B19 05/13/2019 [facility] Parvovirus Negative Negative [place] [address] (B19) IgG [phone] Antibody Parvovirus (B19) IgM Antibody Negative Negative Parvovirus Interpretation See Comment 16 HIV 1&2 p24 05/13/2019 [facility] HIV 4th Non[place] [address] Generation [phone] Lead 05/13/2019 [facility] Lead,Venous, B < 1.0 g/dL 0.0- 4.9 17 [place] [address] [phone] Venous/Capillary Venous Submitting Laboratory Phone [phone] Type And Screen 05/13/2019 [facility] Patient [place] [address] [phone] Antibody Screen NEGATIVE CBC With No 05/13/2019 [facility] White Blood 13.2 10^3/uL High 3.5-10.8 [place] [address] Count [phone] Red Blood Count 3.84 10^6/uL Normal 3.70-4.87 Hemoglobin 11.8 g/dL Low 12.0-16.0 Hematocrit 34 % Low 35-47 Mean Corpuscular Volume 89 fL Normal 80-97 Mean Corpuscular Hemoglobin 31 pg Normal 27-31 Mean Corpuscular HGB Conc 35 g/dL Normal 31-36 Red Cell Distribution Width 13 % Normal 10-15 Platelet Count 245 10^3/uL Normal 150-450 Mean Platelet Volume 8.9 fL Normal 7.4-10.4 PNL No 05/13/2019 [facility] Rubella Screen Immune Immune 19 [place] [address] [phone] Hemoglobin A1c 4.9 % Normal 4.0-5.6 20 Hepatitis B Surface Ag Nonreactive Nonreactive 21 Syphillis Igg W/Reflex RPR Negative Negative 22 Laboratory test finding 05/13/2019 [facility] PDF Report SEE IMAGE [id number] Sequential Integrated 05/13/2019 [facility] Interpretation: SEE NOTE 23 Screen, Part 1([place]) Age Risk Down Syndrome 1:710 JENNIFER Down Syndrome Risk IN PROCESS <1:50 JENNIFER Trisomy 18 Risk IN PROCESS <1:100 Calc'd Gestational Age 11.1 24 Katy-A 742.9 ng/mL 25 Katy-A MoM 1.28 hCG, Serum 104.3 IU/mL hCG MoM 1.00 NT MoM 0.94 26 Referring Physician Name RAMONA Referring Physician Phone NOT GIVEN Referring Physician Npi NOT GIVEN Date of [id number] Collection Date Maternal Weight 143 lbs Est'd Date of Delivery 11/29/2019 ELLA Determined by ULTRASOUND Mother's Ethnic Origin Number of Fetuses 1 Insulin Depend Diabetic NO Repeat Specimen NO Hx Of Neural Tube Defects NO Prev Down Synd NO Donor Egg NO Donor Age: Egg Retrieval NOT GIVEN Cigarette smoker NOT GIVEN Ultrasound Date 05/13/2019 Coal Shooter's Name HOLLI NTQR Coal Shooter Id# [id number] NTQR Location Id# [id number] NTQR Reading Phys Id# [id number] [facility] Coal Shooter Id# NOT GIVEN Juncal Rump Length 46 mm Nuchal Translucency 1.1 mm Nasal Bone NOT ASSESSED If Twins NOT GIVEN Twin B CRL NOT GIVEN mm Twin B NT NOT GIVEN mm Twin B Nasal Bone NOT GIVEN 1 [id number] 2 The specimen was tested at the listed cutoffs: Drug Class Test level (ng/mL) Hydrocodone 300 Oxycodone 100 Fentanyl 1 Methadone 150 Buprenorphine 5 Amphetamines 500 Barbiturates 200 Benzodiazepines 200 Cocaine 150 Cannabinoids 50 Opiates 300 PCP 25 Specimen was received without chain of custody. Results should be used for medical purposes only. 3 Because ethnic data is not always readily available, this report includes an eGFR for both -Americans and non- Americans. The National Kidney Disease Education Program (NKDEP) does not endorse the use of the MDRD equation for patients that are not between the ages of 18 and 70, are , have extremes of body size, muscle mass, or nutritional status, or are non- or non-. According to the National Kidney Foundation, irrespective of diagnosis, the stage of the disease is based on the level of kidney function: Stage Description GFR(mL/min/1.73 m(2)) 1 Kidney damage with normal or decreased GFR 90 2 Kidney damage with mild decrease in GFR 60-89 3 Moderate decrease in GFR 30-59 4 Severe decrease in GFR 15-29 5 Kidney failure <15 (or dialysis) 4 SCREEN NEGATIVE FOR OPEN NTD, DOWN SYNDROME AND TRISOMY 18. NT WAS USED IN THE RISK CALCULATIONS. 5 Juncal rump length (CRL) was used to calculate gestational age. ELLA, if provided, was not used for gestational age dating. 6 Reference Range: <2.50 IDD <1.90 TWINS <4.00 TWINS IDD <3.50 TRIPLETS <4.50 7 This test was performed using a kit that has not been cleared or approved by the FDA. The analytical performance characteristics of this test have been determined by [facility]. This test should not be used for diagnosis without confirmation by other medically established means. 8 The Sequential Integrated Screen combines KATY-A and [...] technique. Interpretation reviewed by: Mark Stapleton, Ph.D., [facility]. 9 ON TEST REQ ABOVE 10 For additional information, please refer to http://education.Hello Agent.MyWave/faq/FAQ94 (This link is provided for informational/educational purposes only.) This is a screening test, not a diagnostic test. This risk assessment is based on demographic data provided by the ordering physician. Please notify the laboratory promptly if any data are incorrect. It has been observed that patients who smoke cigarettes during may have a slightly increased risk of having a false positive JENNIFER screen for Down Syndrome or trisomy 18. If you have questions concerning this report: For clinical consultation, call ; For technical questions, call ext [phone]; For recalculations, fax to [phone]. 11 The specimen was tested at the listed cutoffs: Drug Class Test level (ng/mL) Hydrocodone 300 Oxycodone 100 Fentanyl 1 Methadone 150 Buprenorphine 5 Amphetamines 500 Barbiturates 200 Benzodiazepines 200 Cocaine 150 Cannabinoids 50 Opiates 300 PCP 25 Specimen was received without chain of custody. Results should be used for medical purposes only. 12 SEE RESULT BELOW Name: TESHA MORROW : [address]: Ladan Mix [facility] Acct: [id number] Unit: [id number] AGE: 28 Location: [facility] Re05/13/19 SEX: F Status: REG REF SPEC: [id number] MEL: 05/13/[address]: Ladan Mix [facility] REQ: [id number] RECD: 05/13/19 STATUS: COMP _ SOURCE: URINE SPDESC: ORDERED: Urine Culture COMMENTS: [id number] Urine Source: Random Procedure Result Reported Site Urine Culture Final 05/14/19- 1600 ML No Growth (<1,000 CFU/mL) * ML - Main Lab . END OF REPORT DEPARTMENT OF PATHOLOGY, [address] [place] [address] Mitesh Garner M.D. Director [facility] # [id number] 13 SEE RESULT BELOW Name: TESHA MORROW : [address]: Ladan Mix Andriy Acct: [id number] Unit: [id number] AGE: 28 Location: [facility] Re05/13/19 SEX: F Status: REG REF SPEC: [id number] MEL: 05/13/[address] [facility] [address]: Ladan Mix [facility] REQ: [id number] RECD: 05/14/19 STATUS: SOUT _ ORDERED: TP IMAGE ANALYS, ASSISTANT SERVICE MANAGER PHYS INTERP, HPV/Thin Prep COMMENTS: [id number] FINAL DIAGNOSIS EPITHELIAL CELL ABNORMALITIES Atypical squamous cells of undetermined significance HPV RESULTS Date Time Test Result Flag (u) Normal Range 05/13/191426 HPV JESSIKA RFLX GE POSITIVE An Negative The high-risk HPV types detected by the assay include: 16, 18, 31, 33, 35, 39, 45, 51, 52, 56, 58, 59, 66, and 68. SPECIMEN(S) RECEIVED A. Ectocervical/Endocervical CYTOLOGY ADEQUACY Specimen Adequacy: Satisfactory of evaluation Transformation zone component identified CYTOLOGY PATIENT INFORMATION Patient Information: HPV: Thin Layer Pap Test w/reflex to high risk HPV RNA testing when ASCUS Actual Specimen Date: 02/24/19 LMP If Unknown: [id number] ?: Y Post Menopausal?: N Hysterectomy?: N CONTINUED ON NEXT PAGE DEPARTMENT OF PATHOLOGY, [address] [place], [place] [id number] Mitesh Garner M.D. Director [facility] # [id number] Previous Abnormal Pap Smears?:N Signed by and Reported on: Beryl Connelly MD 05/17/19 1443 This Pap test was evaluated with the assistance of the Tripbirdsp Test Imaging System. Due to cytologic findings at the compressed gases tester microscope, comprehensive manual rescreening by a Sugar Drier may be required. The Pap Smear is a screening test designed to aid in the detection of premalignant and malignant conditions of the uterine cervix. It is not a diagnostic procedure and should not be used as the sole means of detecting cervical cancer. Both false- positive and false- negative reports do occur. Depending on your risk status, a Pap smear should be obtained and evaluated every 1-3 years. END OF REPORT DEPARTMENT OF PATHOLOGY, [address] [place] [address] Mitesh Garner M.D. Director [facility] # [id number] 14 [id number] 15 [id number] 16 No antibody to Parvovirus B19 detected. Acute infection cannot be ruled out as antibody levels may be below the limit of detection. If clinically indicated, a second serum should be submitted in 14-21 days. ADDITIONAL INFORMATION This test has been modified from the steel roller's instructions. Its performance characteristics were determined by [facility] in a manner consistent with CLIA requirements. This test has not been cleared or approved by the U.S. Food and Drug Administration. Test Performed by: [place] [address] Cold Press Operator: Thanh Sidhu M.D. Ph.D.; CLIA# [id number] 17 ADDITIONAL INFORMATION Testing performed by Inductively Coupled Plasma-Mass Spectrometry (ICP-MS). This test was developed and its performance characteristics determined by [facility] in a manner consistent with CLIA requirements. This test has not been cleared or approved by the U.S. Food and Drug Administration. 18 Test Performed by: [facility] [place] [address] Cold Press Operator: Thanh Sidhu M.D. Ph.D.; CLIA# [id number] 19 [id number] 20 Therapeutic target for the treatment of diabetes mellitus patients is <7% HBA1C, and in selective patients <6.0%. Please refer to [place] [employer] diabetic care guidelines for further information. 21 [id number] 22 [id number] 23 This patient's risk does not exceed the [...] Please submit the Part 2 specimen between 06/09/2019-08/03/2019 (15.0 and 22.9 weeks gestation) with 06/09/2019-06/22/2019 (15.0 - 16.9 weeks gestation) being optimal. When submitting Part 2, please include the following Specimen # from Part 1: [id number] 24 Juncal rump length (CRL) was used to calculate gestational age. ELLA, if provided, was not used for gestational age dating. 25 This test was performed using a kit that has not been cleared or approved by the FDA. The analytical performance characteristics of this test have been [facility] by [facility]. This test should not be used for diagnosis without confirmation by other medically established means. 26 Interpretation reviewed by: Kathie Butterfield, Ph.D., [facility]. For additional information, please refer to http://education.Exchangery/faq/FAQ89 (This link is being provided for informational/educational purposes only.) This is a screening test, not a diagnostic test. This risk assessment is based on demographic data provided by the ordering physician. Please notify the laboratory promptly if any data are incorrect. It has been observed that patients who smoke cigarettes during may have a slightly increased risk of having a false positive JENNIFER screen for Down Syndrome or trisomy 18 If you have questions concerning this report: For clinical consultation, call ; For technical questions, call ext [phone]; For recalculations, fax to . Procedures Date Code Description Status 11/05/2019 10372 Biophysical Profile Without Non Stress Test Completed 11/05/2019 52318 Ultrasound,Transvaginal Completed 11/05/2019 99491 Echography Uterus Follow-Up Or Repeat Completed 08/24/2019 25209 Non-Stress Test Completed 07/15/2019 08924 Echography Uterus Complete Completed 05/13/2019 36485 OB Ultrasound First Trimester Completed Medical Devices Description No Information Available Encounters Type Date Location Provider Dx Diagnosis Office Visit 08/24/2019 Delivery Carlos Alfonso, O47.03 False labor before 37 8:53a M.D. completed weeks of gest, third tri Office Visit 08/11/2019 Delivery Doug Bustos JR, DO R10.30 Lower abdominal pain, 9:49a unspecified Assessments Date Code Description Provider 11/05/2019 O44.43 Low lying placenta NOS or without Ultrasounds hemorrhage, third trimester 10/14/2019 Z34.83 Encounter for supervision of other normal Winsome Aguirre CNM , third trimester 09/11/2019 Z36.9 Encounter for screening, Colette Lucas MD unspecified 09/11/2019 Z23 Encounter for immunization Ladan Mix CNM 09/11/2019 Z36.9 Encounter for screening, Laboratory unspecified 08/24/2019 O47.03 False labor before 37 completed weeks of Carlos Alfonso M.D. gestation, third trimester 08/14/2019 Z34.82 Encounter for supervision of other normal Adamaris Chase, CHARLENE , second trimester 08/11/2019 R10.30 Lower abdominal pain, unspecified Doug Bustos JR, DO 07/15/2019 Z36.3 Encounter for screening for Colette Lucas MD malformations 07/15/2019 Z34.82 Encounter for supervision of other normal Dulce Hope CNM , second trimester 07/15/2019 Z36.3 Encounter for screening for Ultrasounds malformations 06/14/2019 Z34.82 Encounter for supervision of other normal Genna Balbuena CNM , second trimester 05/13/2019 O26.91 related conditions, unspecified, Torey Mcdonough MD first trimester 05/13/2019 Z23 Encounter for immunization Ladan Mix CNM 05/13/2019 Z36.3 Encounter for screening for Ladan Mix CNM malformations 05/13/2019 O26.91 related conditions, unspecified, Ultrasounds first trimester Plan of Treatment Future Appointment(s):12/03/2019 3:00 pm - Winsome Aguirre CNM at [facility]11/26/2019 2:30 pm - Winsome Aguirre CNM at [facility]11/19/2019 3 :00 pm - Dulce Hope CNM at [facility]11/12/2019 3:00 pm - Ladan Mix CNM at [facility]11/07/2018 - MARY IreneMO02.1 Missed Functional Status Description No Information Available Mental Status Description No Information Available Referrals Refer to Reason for Referral Status Appt Date [facility] 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
--- OUTSIDE RECORDS SUMMARY | 2019-11-25 12:42 | XMS REPORT | Continuity of Care Document ---
:1990 External Reference #:[id number] Author Name Adamaris Chase CNM (transmitted by agent of provider Noelle Alba) Address [address] [place] [id number] Problems Active Problems Provider Date Recurrent loss [...] CPT Code Status Date Vaccine Lot # [id number] Given 09/11/2019 Tetnus, Diptheria Toxoids And Acellular Pertussis, [id number] PT > 7Yrs Old [address] Given 05/13/2019 Influenza Vaccine Quadrivalent Preser/Antibiotic [id number] Free Im Use 31662 Given 07/07/2014 Tetnus, Diptheria Toxoids And Acellular Pertussis, [id number] PT > 7Yrs Old Vital Signs Date Vital Result Comment 05/13/2019 12:38pm BP Systolic 116 mmHg BP Diastolic 66 mmHg Height 67 inches 5'7" Weight 143.00 lb BMI (Body Mass Index) 22.4 kg/m2 Last Menstrual Period 0728912 4 Parity 1 02/15/2019 7:56am BP Systolic 118 mmHg BP Diastolic 68 mmHg Height 67 inches 5'7" Weight 145.00 lb BMI (Body Mass Index) 22.7 kg/m2 Last Menstrual Period 0548077 3 Parity 1 Results Test Acquired Date Facility Test Result H/L Range Note Laboratory test 11/05/2019 [facility] Genital For SEE RESULT 1 [place] [address] GRP B Strep BELOW [phone] Only Laboratory test 09/11/2019 [facility] Glucose 1 HR 60 mg/dL Low 70-160 2 [place] [address] Post Prandial [phone] CBC With No Diff 09/11/2019 [facility] White Blood 16.9 High 3.5-10.8 [place] [address] Count 10^3/uL [phone] Red Blood Count 3.58 10^6/uL Low 3.70-4.87 Hemoglobin 11.0 g/dL Low 12.0-16.0 Hematocrit 33 % Low 35-47 Mean Corpuscular Volume 91 fL Normal 80-97 Mean Corpuscular Hemoglobin 31 pg Normal 27-31 Mean Corpuscular HGB Conc 34 g/dL Normal 31-36 Red Cell Distribution Width 13 % Normal 10-15 Platelet Count 281 10^3/uL Normal 150-450 Mean Platelet Volume 8.9 fL Normal 7.4-10.4 Laboratory test 08/24/2019 [facility] [place] [address] Fibronectin [phone] Urinalysis 08/24/2019 [facility] [place] [address] [phone] Urine Appearance Clear Urine Specific [place] 1.019 Normal 1.010-1.030 Urine pH 6.0 Normal 5-9 Urine Urobilinogen Negative Negative Urine Ketones Trace Abnormal Negative Urine Protein Negative Negative Urine Leukocytes Negative Negative Urine Blood Negative Negative Urine Nitrite Negative Negative Urine Bilirubin Negative Negative Urine Glucose Negative Negative Drug Screen 08/24/2019 [facility] Urine None Detected None [place] [address] Hydrocodone [facility] [phone] Screen Urine Oxycodone Screen None Detected None [...] Urine Phencyclidine Screen None Detected None Detect 3 CBC Auto 08/24/2019 [facility] White Blood 15.8 10^3/uL High 3.5-10.8 [place] [address] Count [phone] Red Blood Count 3.59 10^6/uL Low 3.70-4.87 [...] Blood Cells % 0.0 Comp Metabolic 08/24/2019 [facility] Sodium 135 mmol/L Normal 135-145 [place] [address] [phone] Potassium 3.9 mmol/L Normal 3.5-5.0 Chloride 104 [...] Egfr Non- 120.8 >60 Egfr 146.2 >60 4 Type And Screen 08/24/2019 [facility] Patient [place] [address] [phone] Antibody Screen NEGATIVE Drug Screen 06/14/2019 [facility] Urine None Detected None [place] [address] Hydrocodone [facility] [phone] Screen Urine Oxycodone Screen None Detected None [...] Urine Phencyclidine Screen None Detected None Detect 5 Sequential Integrated Screen, 06/14/2019 [facility] Interpretation: SEE NOTE 6 Part 2([place]) Risk for Ontd 1:450 Age Risk Down Syndrome 1:950 JENNIFER Down Syndrome Risk <1:5000 <1:270 JENNIFER Trisomy 18 Risk <1:5000 <1:100 Calc'd Gestational Age 15.7 7 Afp, Serum 63.2 ng/mL Afp MoM 1.96 8 hCG, Serum 48.5 IU/mL hCG MoM 1.29 Estriol, Free 0.76 ng/mL Estriol MoM 1.05 Inhibin A, Dimeric 180 pg/mL Inhibin A MoM 1.01 Katy-A 742.9 ng/mL 9 Katy-A MoM 1.28 NT MoM 0.94 10 Referring Physician Name STORK Referring Physician Phone ON TEST REQ ABOV <SEE NOTE> 11 Referring Physician Npi [id number] Specimen # from Part 1 [id number] Date of 1990 Collection Date 06/14/2019 Maternal Weight 143 lbs Est'd Date of Delivery 11/29/2019 Nuchal Translucency 1.1 mm [place] Rump Length 46 mm Ultrasound Date 05/13/2019 Nasal Bone NOT ASSESSED Mother's Ethnic Origin Insulin Depend Diabetic NO Repeat Specimen NO Number of Fetuses 1 Hx Of Neural Tube Defects NO Cigarette smoker NOT GIVEN Twin B Nasal Bone NOT GIVEN 12 Laboratory test finding 06/14/2019 [facility] Enhanced PDF Report SEE IMAGE [id number] 1 SEE RESULT BELOW Name: TESHA GA : [address]: Dulce Hope [facility] Acct: [id number] Unit: [id number] AGE: 29 Location: [facility] Re11/05/19 SEX: F Status: REG REF SPEC: [id number] MEL: 11/05/19-[address] [facility] [address]: Dulce Hope [facility] REQ: [id number] RECD: 11/06/19-1199 STATUS: COMP _ SOURCE: CER/VAG/RE SPDESC: ORDERED: Grp B Strp Scrn COMMENTS: [id number] QUERIES: Is Patient Penicillin Allergic? N Is patient penicillin allergic and/or sensitivities needed? N Provider Requisition # C77#[id number]_ Procedure Result Reported Site Group B Strep Culture Screen Final 11/08/19- 2223 ML Group B Strep Screen Negative * ML - Main Lab . END OF REPORT DEPARTMENT OF PATHOLOGY, [address] [place] [address] Mitesh Garner M.D. Director [facility] # [id number] 2 [id number] 3 The specimen was tested at the listed cutoffs: Drug Class Test level (ng/mL) Hydrocodone 300 Oxycodone 100 Fentanyl 1 Methadone 150 Buprenorphine 5 Amphetamines 500 Barbiturates 200 Benzodiazepines 200 Cocaine 150 Cannabinoids 50 Opiates 300 PCP 25 Specimen was received without chain of custody. Results should be used for medical purposes only. 4 Because ethnic data is not always readily [...] 15-29 5 Kidney failure <15 (or dialysis) 5 The specimen was tested at the listed cutoffs: Drug Class Test level (ng/mL) Hydrocodone 300 Oxycodone 100 Fentanyl 1 Methadone 150 Buprenorphine 5 Amphetamines 500 Barbiturates 200 Benzodiazepines 200 Cocaine 150 Cannabinoids 50 Opiates 300 PCP 25 Specimen was received without chain of custody. Results should be used for medical purposes only. 6 SCREEN NEGATIVE FOR OPEN NTD, DOWN SYNDROME AND TRISOMY 18. NT WAS USED IN THE RISK CALCULATIONS. 7 [place] rump length (CRL) was used to calculate gestational age. ELLA, if provided, was not used for gestational age dating. 8 Reference Range: <2.50 IDD <1.90 TWINS <4.00 TWINS IDD <3.50 TRIPLETS <4.50 9 This test was performed using a kit that has not been cleared or approved by the FDA. The analytical performance characteristics of this test have been determined by [facility]. This test should not be used for diagnosis without confirmation by other medically established means. 10 The Sequential Integrated Screen combines KATY-A and [...] technique. Interpretation reviewed by: Mark Stapleton, Ph.D., [facility]. 11 ON TEST REQ ABOVE 12 For additional information, please refer to http://[employer].MyGoGames/faq/FAQ00 (This link is provided for informational/educational purposes [...] call ; For technical questions, call ext [phone]; For recalculations, fax to . Procedures Date Code Description Status 11/19/2019 72272 Obstetric Care Routine Completed 11/05/2019 96069 Biophysical Profile Without Non Stress Test Completed 11/05/2019 18986 Ultrasound,Transvaginal Completed 11/05/2019 99994 Echography Uterus Follow-Up Or Repeat Completed 08/24/2019 42992 Non-Stress Test Completed 07/15/2019 03264 Echography Uterus Complete Completed Medical Devices Description No Information Available Encounters Type Date Location Provider Dx Diagnosis Office Visit 08/24/2019 Delivery Carlos Alfonso, O47.03 False labor before 37 8:53a M.D. completed weeks of gest, third tri Office Visit 08/11/2019 Delivery Doug Bustos JR DO R10.30 Lower abdominal pain, 9:49a unspecified Assessments Date Code Description Provider 11/19/2019 O80 Encounter for full-term uncomplicated Adamaris Chase CNM delivery 11/19/2019 Z37.0 Single live Adamaris Chase CNM 11/19/2019 Z39.0 Encounter for care and examination of Adamaris Chase CNM mother immediately after delivery 11/05/2019 O44.43 Low lying placenta NOS or without Doug Bustos JR, DO hemorrhage, third trimester 11/05/2019 Z34.83 Encounter for supervision of other normal MARY IreneAndriy , third trimester 11/05/2019 O44.43 Low lying placenta NOS or [...] for supervision of other normal Adamaris Chase, [facility] , second trimester 08/11/2019 R10.30 Lower abdominal pain, unspecified Doug Bustos JR, DO 07/15/2019 Z36.3 Encounter for screening for Colette Lucas MD malformations 07/15/2019 Z34.82 Encounter for supervision of other normal Dulce Hope , [facility] , second trimester 07/15/2019 Z36.3 Encounter for screening for Ultrasounds malformations 06/14/2019 Z34.82 Encounter for supervision of other normal Genna Balbuena, [facility] , second trimester Plan of Treatment No Information Available Functional Status Description No Information Available Mental Status Description No Information Available Referrals Refer to Dr Reason for Referral Status Appt Date [facility] 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
--- OUTSIDE RECORDS SUMMARY | 2019-11-25 12:42 | XMS REPORT | Continuity of Care Document ---
:1990 External Reference #:[id number] Author Name Winsome Aguirre CNM (transmitted by agent of provider Mariely Grimm) Address [address] [place] [address] Problems Active Problems Provider Date Recurrent loss [...] Winsome Henderson 10/14/2019 25mg daily for one CHARLENE Aguirre Tablets week, increase to 1 full tablet [...] CPT Code Status Date Vaccine Lot # [id number] Given 09/11/2019 Tetnus, Diptheria Toxoids And Acellular Pertussis, [id number] PT > 7Yrs Old [address]93 Given 05/13/2019 Influenza Vaccine Quadrivalent Preser/Antibiotic 084700 Free Im Use 33881 Given 07/07/2014 Tetnus, Diptheria Toxoids And Acellular Pertussis, [id number] PT > 7Yrs Old Vital Signs Date Vital Result Comment 05/13/2019 12:38pm BP Systolic 116 mmHg BP Diastolic 66 mmHg Height 67 inches 5'7" Weight 143.00 lb BMI (Body Mass Index) 22.4 kg/m2 Last Menstrual Period 3008136 4 Parity 1 02/15/2019 7:56am BP Systolic 118 mmHg BP Diastolic 68 mmHg Height 67 inches 5'7" Weight 145.00 lb BMI (Body Mass Index) 22.7 kg/m2 Last Menstrual Period 0755482 3 Parity 1 Results Test Acquired Date Facility Test Result H/L Range Note Laboratory test 09/11/2019 [facility] Glucose 1 HR 60 mg/dL Low 70-160 1 [place] [address] Post Prandial [phone] CBC With No Diff 09/11/2019 [facility] White Blood 16.9 High 3.5-10.8 [place] [address] Count 10^3/uL [phone] Red Blood Count 3.58 10^6/uL Low 3.70-4.87 Hemoglobin 11.0 g/dL Low 12.0-16.0 Hematocrit 33 % Low 35-47 Mean Corpuscular Volume 91 fL Normal 80-97 Mean Corpuscular Hemoglobin 31 pg Normal 27-31 Mean Corpuscular HGB Conc 34 g/dL Normal 31-36 Red Cell Distribution Width 13 % Normal 10-15 Platelet Count 281 10^3/uL Normal 150-450 Mean Platelet Volume 8.9 fL Normal 7.4-10.4 Laboratory test 08/24/2019 [facility] [place] [address] Fibronectin [phone] Urinalysis 08/24/2019 [facility] [place] [address] [phone] Urine Appearance Clear Urine Specific [place] 1.019 Normal 1.010-1.030 Urine pH 6.0 Normal 5-9 Urine Urobilinogen Negative Negative Urine Ketones Trace Abnormal Negative Urine Protein Negative Negative Urine Leukocytes Negative Negative Urine Blood Negative Negative Urine Nitrite Negative Negative Urine Bilirubin Negative Negative Urine Glucose Negative Negative Drug Screen 08/24/2019 [facility] Urine None Detected [place] [address] Hydrocodone Clinic [phone] Screen Urine Oxycodone Screen None Detected None [...] Detected None Detect 2 CBC Auto 08/24/2019 [facility] White Blood 15.8 10^3/uL High 3.5-10.8 [place] [address] Count [phone] Red Blood Count 3.59 10^6/uL Low 3.70-4.87 [...] Blood Cells % 0.0 Comp Metabolic 08/24/2019 [facility] Sodium 135 mmol/L Normal 135-145 [place] [address] [phone] Potassium 3.9 mmol/L Normal 3.5-5.0 Chloride 104 [...] 146.2 >60 3 Type And Screen 08/24/2019 [facility] Patient Blood Type A Positive [place], [place] [address] [phone] Antibody Screen NEGATIVE Laboratory test finding 06/14/2019 [facility] PBL Enhanced PDF Report SEE IMAGE [id number] Sequential Integrated 06/14/2019 [facility] Interpretation: SEE NOTE 4 Screen, Part 2([place]) Risk for Ontd 1:450 Age Risk Down [...] NT MoM 0.94 8 Referring Physician Name STORK Referring Physician Phone ON TEST REQ ABOV <SEE NOTE> 9 Referring Physician Npi [id number] Specimen # from Part 1 [id number] Date of 1990 Collection Date 06/14/2019 Maternal Weight 143 lbs Est'd Date of Delivery 11/29/2019 Nuchal Translucency 1.1 mm [place] Rump Length 46 mm Ultrasound Date 05/13/2019 Nasal Bone NOT ASSESSED Mother's Ethnic Origin Insulin Depend Diabetic NO Repeat Specimen NO Number of Fetuses 1 Hx Of Neural Tube Defects NO Cigarette smoker NOT GIVEN Twin B Nasal Bone NOT GIVEN 10 Drug Screen 06/14/2019 [facility] Urine None Detected [place] [address] Hydrocodone Clinic [phone] Screen Urine Oxycodone Screen None Detected None [...] None Detect 11 Urine Culture And 05/13/2019 [facility] Urine Culture SEE RESULT 12 [place] [address] BELOW [phone] GC/Chlamydia Dna 05/13/2019 [facility] Chlam[place] [address] trachomatis [phone] Jessika Neisseria gonorrhoeae (GC) Jessika Negative Negative Laboratory test 05/13/2019 [facility] Cytology SEE RESULT [address] [place] [address] BELOW [phone] Laboratory test 05/13/2019 [facility] TSH 0.87 mcIU/mL Normal 0.34-5 14 [place] [address] .60 [phone] T4 Free 0.86 ng/dL Normal 0.61-1.12 15 Parvovirus B19 05/13/2019 [facility] Parvovirus Negative [place] [address] (B19) IgG [phone] Antibody Parvovirus (B19) IgM Antibody Negative Negative Parvovirus Interpretation See Comment 16 HIV 1&2 p24 05/13/2019 [facility] HIV 4th [place] [address] Generation [phone] Lead 05/13/2019 [facility] Lead,Venous, B < 1.0 g/dL 0.0- 4.9 17 [place] [address] [phone] Venous/Capillary Venous Submitting Laboratory Phone [phone] Type And Screen 05/13/2019 [facility] [place] [address] [phone] Antibody Screen NEGATIVE CBC With No 05/13/2019 [facility] White Blood 13.2 10^3/uL High 3.5-10.8 [place] [address] Count [phone] Red Blood Count 3.84 10^6/uL Normal 3.70-4.87 Hemoglobin 11.8 g/dL Low 12.0-16.0 Hematocrit 34 % Low 35-47 Mean Corpuscular Volume 89 fL Normal 80-97 Mean Corpuscular Hemoglobin 31 pg Normal 27-31 Mean Corpuscular HGB Conc 35 g/dL Normal 31-36 Red Cell Distribution Width 13 % Normal 10-15 Platelet Count 245 10^3/uL Normal 150-450 Mean Platelet Volume 8.9 fL Normal 7.4-10.4 PNL No 05/13/2019 [facility] Rubella Screen Immune Immune 19 [place] [address] [phone] Hemoglobin A1c 4.9 % Normal 4.0-5.6 20 Hepatitis B Surface Ag Nonreactive Nonreactive 21 Syphillis Igg W/Reflex RPR Negative Negative 22 Laboratory test finding 05/13/2019 [facility] Enhanced PDF Report SEE IMAGE [id number] Sequential Integrated 05/13/2019 [facility] Interpretation: SEE [...] Referring Physician Npi NOT GIVEN Date of [id number] Collection Date Maternal Weight 143 lbs Est'd Date of Delivery 11/29/2019 ELLA Determined by ULTRASOUND Mother's Ethnic Origin Number of Fetuses 1 Insulin Depend Diabetic NO Repeat Specimen NO Hx Of Neural Tube Defects NO Prev Down Synd NO Donor Egg NO Donor Age: Egg Retrieval NOT GIVEN Cigarette smoker NOT GIVEN Ultrasound Date 05/13/2019 Metal Bonding Helper's Name HOLLI NTQR Metal Bonding Helper Id# [id number] NTQR Location Id# [id number] NTQR Reading Phys Id# [id number] [facility] Metal Bonding Helper Id# NOT GIVEN [place] Rump Length 46 mm Nuchal Translucency 1.1 mm Nasal Bone NOT ASSESSED If Twins NOT GIVEN Twin B CRL NOT GIVEN mm Twin B NT NOT GIVEN mm Twin B Nasal Bone NOT GIVEN 1 [id number] 2 The specimen was tested at the [...] WAS USED IN THE RISK CALCULATIONS. 5 [place] rump length (CRL) was used to calculate gestational age. ELLA, if provided, was not used for gestational age dating. 6 Reference Range: <2.50 IDD <1.90 TWINS <4.00 TWINS IDD <3.50 TRIPLETS <4.50 7 This test was performed using a kit that has not been cleared or approved by the FDA. The analytical performance characteristics of this test have been determined by [facility]. This test should not be used [...] technique. Interpretation reviewed by: Mark Stapleton, Ph.D., [facility]. 9 ON TEST REQ ABOVE 10 For additional information, please refer to http://education.[employer]/faq/FAQ94 (This link is provided for informational/educational purposes [...] call ; For technical questions, call ext [phone]; For recalculations, fax to [phone]. 11 The specimen was tested at the listed cutoffs: Drug Class Test level (ng/mL) Hydrocodone 300 Oxycodone 100 Fentanyl 1 Methadone 150 Buprenorphine 5 Amphetamines 500 Barbiturates 200 Benzodiazepines 200 Cocaine 150 Cannabinoids 50 Opiates 300 PCP 25 Specimen was received without chain of custody. Results should be used for medical purposes only. 12 SEE RESULT BELOW Name: MORROWTESHA : [address]: Ladan Mix [facility] Acct: [id number] Unit: [id number] AGE: 28 Location: [facility] Re05/13/19 SEX: F Status: REG REF SPEC: [id number] MEL: 05/13/[address]: Ladan Mix CNM REQ: [id number] RECD: 05/13/19 STATUS: COMP _ SOURCE: URINE SPDESC: ORDERED: Urine Culture COMMENTS: [id number] Urine Source: Random Procedure Result Reported Site Urine Culture Final 05/14/19- 1600 ML No Growth (<1,000 CFU/mL) * ML - Main Lab . END OF REPORT DEPARTMENT OF PATHOLOGY, [address] [place] [address] Mitesh Garner M.D. Director [facility] # [id number] 13 SEE RESULT BELOW Name: TESHA MORROW : [address]: Ladan Mix CNM Acct: [id number] Unit: [id number] AGE: 28 Location: [facility] Re05/13/19 SEX: F Status: REG REF SPEC: [id number] MEL: 05/13/[address] [facility] [address]: Ladan Mix [facility] REQ: [id number] RECD: 05/14/19 STATUS: SOUT _ ORDERED: TP IMAGE ANALYS, MAIL PROCESSOR PHYS INTERP, HPV/Thin Prep COMMENTS: [id number] FINAL DIAGNOSIS EPITHELIAL CELL ABNORMALITIES Atypical squamous cells of undetermined significance HPV RESULTS Date Time Test Result Flag (u) Normal Range 05/13/19 1427 HPV JESSIKA RFLX GE POSITIVE An Negative [...] Actual Specimen Date: 02/24/19 LMP If Unknown: [id number] ?: Y Post Menopausal?: N Hysterectomy?: N CONTINUED ON NEXT PAGE DEPARTMENT OF PATHOLOGY, [address] [place], [place] [address] Mitesh Garner M.D. Director [facility] # [id number] Previous Abnormal Pap Smears?:N Signed by and Reported on: Beryl Connelly MD 05/17/19 4776 This Pap test was evaluated with the assistance of the PagaTuAlquilerPrep Test Imaging System. Due to cytologic findings at the grain origination specialist microscope, comprehensive manual rescreening by a Compliance Specialist may be required. The Pap Smear is [...] years. END OF REPORT DEPARTMENT OF PATHOLOGY, [address] [place] [address] Mitesh Garner M.D. Director [facility] # [id number] 14 [id number] 15 [id number] 16 No antibody to Parvovirus B19 detected. Acute infection cannot be ruled out as antibody levels may be below the limit of detection. If clinically indicated, a second serum should be submitted in 14-21 days. ADDITIONAL INFORMATION This test has been modified from the program evaluator's instructions. Its performance characteristics were determined by [facility] in a manner consistent with CLIA requirements. This test has not been cleared or approved by the U.S. Food and Drug Administration. Test Performed by: [place] [address] [employer] Workflow Consultant: Thanh Sidhu M.D. Ph.D.; CLIA# [id number] 17 ADDITIONAL INFORMATION Testing performed by Inductively Coupled Plasma-Mass Spectrometry (ICP-MS). This test was developed and its performance characteristics determined by [facility] in a manner consistent with CLIA requirements. This test has not been cleared or approved by the U.S. Food and Drug Administration. 18 Test Performed by: [place] [address] [employer] Workflow Consultant: Thanh Sidhu M.D. Ph.D.; CLIA# [id number] 19 [id number] 20 Therapeutic target for the treatment of diabetes mellitus patients is <7% HBA1C, and in selective patients <6.0%. Please refer to [place] [employer] diabetic care guidelines for further information. 21 [id number] 22 [id number] 23 This patient's risk does not exceed [...] Specimen # from Part 1: [id number] 24 [place] rump length (CRL) was used to calculate gestational age. ELLA, if provided, was not used for gestational age dating. 25 This test was performed using a kit that has not been cleared or approved by the FDA. The analytical performance characteristics of this test have been determined by [facility]. This test should not be used for diagnosis without confirmation by other medically established means. 26 Interpretation reviewed by: Kathie Butterfield, Ph.D., [facility]. For additional information, please refer to http://education.WebLayers/faq/FAQ89 (This link is being provided for informational/educational [...] ext [phone]; For recalculations, fax to . Procedures Date Code Description Status 08/24/2019 58538 Non-Stress Test Completed 07/15/2019 47030 Echography Uterus Complete Completed 05/13/2019 74855 OB Ultrasound First Trimester Completed Medical Devices Description No Information Available Encounters Type Date Location Provider Dx Diagnosis Office Visit 08/24/2019 Delivery Carlos Alfonso, O47.03 False labor before 37 8:53a M.D. completed weeks of gest, third tri Office Visit 08/11/2019 Delivery Doug Bustos JR, R10.30 Lower abdominal pain, 9:49a unspecified Assessments Date Code Description Provider 10/14/2019 Z34.83 Encounter for supervision of other normal MARY Yoo , third trimester 09/11/2019 Z36.9 Encounter for screening, Colette Lucas MD unspecified 09/11/2019 Z23 Encounter for immunization Ladan Mix CNM 09/11/2019 Z36.9 Encounter for screening, Laboratory unspecified 08/24/2019 O47.03 False labor before 37 completed weeks of Carlos Alfonso M.D. gestation, third trimester 08/14/2019 Z34.82 Encounter for supervision of other normal Adamaris Chase CNM , second trimester 08/11/2019 R10.30 Lower abdominal [...] 3:00 pm - Winsome Aguirre CNM at [facility]11/26/2019 2:30 pm - Winsome Aguirre CNM at [facility]11/19/2019 3 :00 pm - Dulce Hope CNM at [facility]11/12/2019 3:00 pm - Ladan Mix CNM at [facility]11/05/2019 3:30 pm - Dulce Hope CNM at [facility] 3:30 pm - Ultrasounds at [facility]11/07/2018 - MARY IreneMO02.1 Missed Functional Status Description No Information Available Mental Status Description No Information Available Referrals Refer to Dr Reason for Referral Status Appt Date [facility] 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
--- OUTSIDE RECORDS SUMMARY | 2019-11-25 12:42 | XMS REPORT | Continuity of Care Document ---
:1990 External Reference #:[id number] Author Name Ultrasounds (transmitted by agent of provider Noelle Alba) Address [address] [place] [address] Problems Active Problems Provider Date Recurrent loss [...] Sertraline HCL take 1/2 tablet 90tabs Winsome Beatriz 10/14/2019 25mg daily for one Carla, CNM [...] CPT Code Status Date Vaccine Lot # [id number] Given 09/11/2019 Tetnus, Diptheria Toxoids And Acellular Pertussis, [id number] PT > 7Yrs Old [address] Given 05/13/2019 Influenza Vaccine Quadrivalent Preser/Antibiotic [id number] Free Im Use 94933 Given 07/07/2014 Tetnus, Diptheria Toxoids And Acellular Pertussis, [id number] PT > 7Yrs Old Vital Signs Date Vital Result Comment 05/13/2019 12:38pm BP Systolic 116 mmHg BP Diastolic 66 mmHg Height 67 inches 5'7" Weight 143.00 lb BMI (Body Mass Index) 22.4 kg/m2 Last Menstrual Period 7620291 4 Parity 1 02/15/2019 7:56am BP Systolic 118 mmHg BP Diastolic 68 mmHg Height 67 inches 5'7" Weight 145.00 lb BMI (Body Mass Index) 22.7 kg/m2 Last Menstrual Period 7125166 3 Parity 1 Results Test Acquired Date Facility Test Result H/L Range Note Laboratory test 11/05/2019 [facility] Genital For <pending> [place] [address] GRP B Strep [phone] Only Laboratory test 09/11/2019 [facility] Glucose 1 HR 60 mg/dL Low 70-160 1 [place] [address] Post Prandial [phone] CBC With No Diff 09/11/2019 [facility] White Blood 16.9 High 3.5-10.8 [place] [address] Count 10^3/uL [phone] Red Blood Count 3.58 10^6/uL Low 3.70-4.87 [...] fL Normal 7.4-10.4 Laboratory test 08/24/2019 [facility] [place] [address] Fibronectin [phone] Urinalysis 08/24/2019 [facility] Urine [place] [address] [phone] Urine Appearance Clear Urine Specific [place] 1.019 Normal 1.010-1.030 Urine pH 6.0 Normal 5-9 Urine Urobilinogen Negative Negative Urine Ketones Trace Abnormal Negative Urine Protein Negative Negative Urine Leukocytes Negative Negative Urine Blood Negative Negative Urine Nitrite Negative Negative Urine Bilirubin Negative Negative Urine Glucose Negative Negative Drug Screen 08/24/2019 [facility] Urine None Detected None [place] [address] Hydrocodone [facility] [phone] Screen Urine Oxycodone Screen None Detected None [...] Detected None Detect 2 CBC Auto 08/24/2019 [facility] White Blood 15.8 10^3/uL High 3.5-10.8 [place] [address] Count [phone] Red Blood Count 3.59 10^6/uL Low 3.70-4.87 [...] Cells % 0.0 Comp Metabolic 08/24/2019 [facility] Sodium 135 mmol/L Normal 135-145 [place] [address] [phone] Potassium 3.9 mmol/L Normal 3.5-5.0 Chloride 104 [...] 146.2 >60 3 Type And Screen 08/24/2019 [facility] Patient Blood Type A Positive [place], [place] [address]17 [phone] Antibody Screen NEGATIVE Laboratory test finding 06/14/2019 [facility] Enhanced PDF Report SEE IMAGE [id number] Sequential Integrated 06/14/2019 [facility] Interpretation: SEE NOTE 4 Screen, Part 2(IN) Risk for Ontd 1:450 Age Risk Down [...] ABOV <SEE NOTE> 9 Referring Physician Npi [id number] Specimen # from Part 1 [id number] Date of 1990 Collection Date 06/14/2019 Maternal Weight 143 lbs Est'd Date of Delivery 11/29/2019 Nuchal Translucency 1.1 mm [place] Rump Length 46 mm Ultrasound Date 05/13/2019 Nasal Bone NOT ASSESSED Mother's Ethnic Origin Insulin Depend Diabetic NO Repeat Specimen NO Number of Fetuses 1 Hx Of Neural Tube Defects NO Cigarette smoker NOT GIVEN Twin B Nasal Bone NOT GIVEN 10 Drug Screen 06/14/2019 [facility] Urine None Detected None [place] [address] Hydrocodone Clinic [phone] Screen Urine Oxycodone Screen None Detected None [...] None Detect 11 Urine Culture And 05/13/2019 [facility] Urine Culture SEE RESULT 12 [place] [address] BELOW [phone] GC/Chlamydia Dna 05/13/2019 [facility] Chlamydia Negative [place] [address] trachomatis [phone] Jessika Neisseria gonorrhoeae (GC) Jessika Negative Negative Laboratory test 05/13/2019 [facility] Cytology SEE RESULT 13 [place] [address] BELOW [phone] Laboratory test 05/13/2019 [facility] TSH 0.87 mcIU/mL Normal 0.34-5 14 [place] [address] .60 [phone] T4 Free 0.86 ng/dL Normal 0.61-1.12 15 Parvovirus B19 05/13/2019 [facility] Parvovirus Negative Negative [place] [address] (B19) IgG [phone] Antibody Parvovirus (B19) IgM Antibody Negative Negative Parvovirus Interpretation See Comment 16 HIV 1&2 p24 05/13/2019 [facility] HIV 4th Nonreactive [place] [address] Generation [phone] Lead 05/13/2019 [facility] Lead,Venous, B < 1.0 g/dL 0.0- 4.9 17 [place] [address] [phone] Venous/Capillary Venous Submitting Laboratory Phone [phone] Type And Screen 05/13/2019 [facility] Patient Blood [place] [address] [phone] Antibody Screen NEGATIVE CBC With No 05/13/2019 [facility] White Blood 13.2 10^3/uL High 3.5-10.8 [place] [address] Count [phone] Red Blood Count 3.84 10^6/uL Normal 3.70-4.87 Hemoglobin 11.8 g/dL Low 12.0-16.0 Hematocrit 34 % Low 35-47 Mean Corpuscular Volume 89 fL Normal 80-97 Mean Corpuscular Hemoglobin 31 pg Normal 27-31 Mean Corpuscular HGB Conc 35 g/dL Normal 31-36 Red Cell Distribution Width 13 % Normal 10-15 Platelet Count 245 10^3/uL Normal 150-450 Mean Platelet Volume 8.9 fL Normal 7.4-10.4 PNL No 05/13/2019 [facility] Rubella Screen Immune Immune 19 [place] [address] [phone] Hemoglobin A1c 4.9 % Normal 4.0-5.6 20 Hepatitis B Surface Ag Nonreactive Nonreactive 21 Syphillis Igg W/Reflex RPR Negative Negative 22 Laboratory test finding 05/13/2019 [facility] Enh[facility] PDF Report SEE IMAGE [id number] Sequential Integrated 05/13/2019 [facility] Interpretation: SEE NOTE 23 Screen, Part 1(IN) Age Risk Down Syndrome 1:710 JENNIFER Down Syndrome Risk IN PROCESS <1:50 JENNIFER Trisomy 18 Risk IN PROCESS <1:100 Calc'd Gestational Age 11.1 24 [place]-A 742.9 ng/mL 25 Ktay-A MoM 1.28 hCG, Serum 104.3 IU/mL hCG MoM 1.00 NT MoM 0.94 26 Referring Physician Name RAMONA Referring Physician Phone NOT GIVEN Referring Physician Npi NOT GIVEN Date of [id number] Collection Date Maternal Weight 143 lbs Est'd Date of Delivery 11/29/2019 ELLA Determined by ULTRASOUND Mother's Ethnic Origin Number of Fetuses 1 Insulin Depend Diabetic NO Repeat Specimen NO Hx Of Neural Tube Defects NO Prev Down Synd NO Donor Egg NO Donor Age: Egg Retrieval NOT GIVEN Cigarette smoker NOT GIVEN Ultrasound Date 05/13/2019 Black Puller's Name HOLLI NTQR Black Puller Id# [id number] NTQR Location Id# [id number] NTQR Reading Phys Id# [id number] [facility] Black Puller Id# NOT GIVEN [place] Rump Length 46 mm Nuchal Translucency 1.1 mm Nasal Bone NOT ASSESSED If Twins NOT GIVEN Twin B CRL NOT GIVEN mm Twin B NT NOT GIVEN mm Twin B Nasal Bone NOT GIVEN 1 [id number] 2 The specimen was tested at the [...] WAS USED IN THE RISK CALCULATIONS. 5 [place] rump length (CRL) was used to calculate gestational age. ELLA, if provided, was not used for gestational age dating. 6 Reference Range: <2.50 IDD <1.90 TWINS <4.00 TWINS IDD <3.50 TRIPLETS <4.50 7 This test was performed using a kit that has not been cleared or approved by the FDA. The analytical performance characteristics of this test have been determined by [facility]. This test should not be used [...] technique. Interpretation reviewed by: Mark Stapleton, Ph.D., [facility]. 9 ON TEST REQ ABOVE 10 For additional information, please refer to http://education.tribr.weartolook/faq/FAQ94 (This link is provided for informational/educational purposes [...] call ; For technical questions, call ext [phone]; For recalculations, fax to [phone]. 11 The specimen was tested at the listed cutoffs: Drug Class Test level (ng/mL) Hydrocodone 300 Oxycodone 100 Fentanyl 1 Methadone 150 Buprenorphine 5 Amphetamines 500 Barbiturates 200 Benzodiazepines 200 Cocaine 150 Cannabinoids 50 Opiates 300 PCP 25 Specimen was received without chain of custody. Results should be used for medical purposes only. 12 SEE RESULT BELOW Name: NASH MORROWOMI : [address]: Ladan Mix [facility] Acct: [id number] Unit: [id number] AGE: 28 Location: [facility] Re05/13/19 SEX: F Status: REG REF SPEC: [id number] MEL: 05/13/[address]: Ladan HERNANDEZ REQ: [id number] RECD: 05/13/19 STATUS: COMP _ SOURCE: URINE SPDESC: ORDERED: Urine Culture COMMENTS: [id number] Urine Source: Random Procedure Result Reported Site Urine Culture Final 05/14/19- 1600 ML No Growth (<1,000 CFU/mL) * ML - Main Lab . END OF REPORT DEPARTMENT OF PATHOLOGY, [address] [place] [address] Mitesh Garner M.D. Director [facility] # [id number] 13 SEE RESULT BELOW Name: TESHA MORROW : [address]: Ladan HERNANDEZM Acct: [id number] Unit: [id number] AGE: 28 Location: [facility] Re05/13/19 SEX: F Status: REG REF SPEC: [id number] MEL: 05/13/19 [facility] DR: Ladan Mix [facility] REQ: [id number] RECD: 05/14/19 STATUS: SOUT _ ORDERED: TP IMAGE ANALYS, EDDY CURRENT INSPECTOR PHYS INTERP, HPV/Thin Prep COMMENTS: [id number] FINAL DIAGNOSIS EPITHELIAL CELL ABNORMALITIES Atypical squamous [...] Actual Specimen Date: 02/24/19 LMP If Unknown: [id number] ?: Y Post Menopausal?: N Hysterectomy?: N CONTINUED ON NEXT PAGE DEPARTMENT OF PATHOLOGY, [address] [place] [address] Mitesh Garner M.D. Director [facility] # [id number] Previous Abnormal Pap Smears?:N Signed by and Reported on: Beryl Connelly MD 05/17/19 7885 This Pap test was evaluated with the assistance of the Outplay Entertainment[employer] Test Imaging System. Due to cytologic findings at the fisheries officer microscope, comprehensive manual rescreening by a Bulk Plant Manager may be required. The Pap Smear is [...] years. END OF REPORT DEPARTMENT OF PATHOLOGY, [facility] [place], [place] [address] Mitesh Garner M.D. Director [facility] # [id number] 14 [id number] 15 [id number] 16 No antibody to Parvovirus B19 detected. Acute infection cannot be ruled out as antibody levels may be below the limit of detection. If clinically indicated, a second serum should be submitted in 14-21 days. ADDITIONAL INFORMATION This test has been modified from the reexaminer's instructions. Its performance characteristics were determined by [facility] in a manner consistent with CLIA requirements. This test has not been cleared or approved by the U.S. Food and Drug Administration. Test Performed by: [place] [address] Stud Master/Mistress: Thanh Sidhu M.D. Ph.D.; CLIA# [id number] 17 ADDITIONAL INFORMATION Testing performed by Inductively Coupled Plasma-Mass Spectrometry (ICP-MS). This test was developed and its performance characteristics determined by [facility] in a manner consistent with CLIA requirements. This test has not been cleared or approved by the U.S. Food and Drug Administration. 18 Test Performed by: [place] [address] Stud Master/Mistress: Thanh Sidhu M.D. Ph.D.; CLIA# [id number] 19 [id number] 20 Therapeutic target for the treatment of diabetes mellitus patients is <7% HBA1C, and in selective patients <6.0%. Please refer to [place] [employer] diabetic care guidelines for further information. 21 [id number] 22 [id number] 23 This patient's risk does not exceed [...] Specimen # from Part 1: [id number] 24 [place] rump length (CRL) was used to calculate gestational age. ELLA, if provided, was not used for gestational age dating. 25 This test was performed using a kit that has not been cleared or approved by the FDA. The analytical performance characteristics of this test have been determined by [facility]. This test should not be used for diagnosis without confirmation by other medically established means. 26 Interpretation reviewed by: Kathie Butterfield, Ph.D., [facility]. For additional information, please refer to http://education.Tweet Category/faq/FAQ89 (This link is being provided for informational/educational [...] . Procedures Date Code Description Status 11/05/2019 16520 Biophysical Profile Without Non Stress Test Completed 11/05/2019 18184 Ultrasound,Transvaginal Completed 11/05/2019 50373 Echography Uterus Follow-Up Or Repeat Completed 08/24/2019 18199 Non-Stress Test Completed 07/15/2019 52479 Echography Uterus Complete Completed 05/13/2019 61279 OB Ultrasound First Trimester Completed Medical Devices [...] Z34.83 Encounter for supervision of other normal Dulce Hope CNM , third trimester 11/05/2019 O44.43 Low lying [...] for supervision of other normal Adamaris Chase CHARLENE , second trimester 08/11/2019 R10.30 Lower [...] pm - Winsome Aguirre CNM at [facility]11/26/2019 2:30 pm - Winsome Aguirre CNM at [facility]11/19/2019 3 :00 pm - Dulce Hope CNM at [facility]11/12/2019 3:00 pm - Ladan Mix CNM at [facility]11/07/2018 - MARY IreneMO02.1 Missed Functional Status Description No Information Available Mental Status Description No Information Available Referrals Refer to Dr Reason for Referral Status Appt Date [facility] [place], [place] 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
--- OUTSIDE RECORDS SUMMARY | 2019-11-25 12:42 | XMS REPORT | Continuity of Care Document ---
:1990 External Reference #:[id number] Author Name Dulce Hope CNM (transmitted by agent of provider Noelle Alba) Address [address] [place] [id number] Problems Active Problems Provider Date Recurrent loss [...] CPT Code Status Date Vaccine Lot # [id number] Given 09/11/2019 Tetnus, Diptheria Toxoids And Acellular Pertussis, [id number] PT > 7Yrs Old [address]79 Given 05/13/2019 Influenza Vaccine Quadrivalent Preser/Antibiotic [id number] Free Im Use 10862 Given 07/07/2014 Tetnus, Diptheria Toxoids And Acellular Pertussis, [id number] PT > 7Yrs Old Vital Signs Date Vital Result Comment 05/13/2019 12:38pm BP Systolic 116 mmHg BP Diastolic 66 mmHg Height 67 inches 5'7" Weight 143.00 lb BMI (Body Mass Index) 22.4 kg/m2 Last Menstrual Period 0764403 4 Parity 1 02/15/2019 7:56am BP Systolic 118 mmHg BP Diastolic 68 mmHg Height 67 inches 5'7" Weight 145.00 lb BMI (Body Mass Index) 22.7 kg/m2 Last Menstrual Period 7592533 3 Parity 1 Results Test Acquired Date Facility Test Result H/L Range Note Laboratory test 11/05/2019 [facility] Genital For <pending> [place] [address] GRP B Strep [phone] Only Laboratory test 09/11/2019 [facility] Glucose 1 HR 60 mg/dL Low 70-160 1 [place] [address] Post Prandial [phone] CBC With No Diff 09/11/2019 [facility] White Blood 16.9 High 3.5-10.8 [place] [address] Count 10^3/uL [phone] Red Blood Count 3.58 10^6/uL Low 3.70-4.87 Hemoglobin 11.0 g/dL Low 12.0-16.0 Hematocrit 33 % Low 35-47 Mean Corpuscular Volume 91 fL Normal 80-97 Mean Corpuscular Hemoglobin 31 pg Normal 27-31 Mean Corpuscular HGB Conc 34 g/dL Normal 31-36 Red Cell Distribution Width 13 % Normal 10-15 Platelet Count 281 10^3/uL Normal 150-450 Mean Platelet Volume 8.9 fL Normal 7.4-10.4 Laboratory test 08/24/2019 [facility] [place] [address] Fibronectin [phone] Urinalysis 08/24/2019 [facility] [place] [address] [phone] Urine Appearance Clear Urine Specific [place] 1.019 Normal 1.010-1.030 Urine pH 6.0 Normal 5-9 Urine Urobilinogen Negative Negative Urine Ketones Trace Abnormal Negative Urine Protein Negative Negative Urine Leukocytes Negative Negative Urine Blood Negative Negative Urine Nitrite Negative Negative Urine Bilirubin Negative Negative Urine Glucose Negative Negative Drug Screen 08/24/2019 [facility] Urine None Detected [place] [address] Hydrocodone [facility] [phone] Screen Urine Oxycodone Screen None Detected None [...] Detected None Detect 2 CBC Auto 08/24/2019 [facility] White Blood 15.8 10^3/uL High 3.5-10.8 [place] [address] Count [phone] Red Blood Count 3.59 10^6/uL Low 3.70-4.87 [...] Blood Cells % 0.0 Comp Metabolic 08/24/2019 [facility] Sodium 135 mmol/L Normal 135-145 [place] [address] [phone] Potassium 3.9 mmol/L Normal 3.5-5.0 Chloride 104 [...] 146.2 >60 3 Type And Screen 08/24/2019 [facility] Patient [place] [address] [phone] Antibody Screen NEGATIVE Laboratory test finding 06/14/2019 [facility] PDF Report SEE IMAGE [id number] Sequential Integrated 06/14/2019 [facility] Interpretation: SEE NOTE 4 Screen, Part 2(FL) Risk for Ontd 1:450 Age Risk Down [...] ABOV <SEE NOTE> 9 Referring Physician Npi [id number] Specimen # from Part 1 [id number] Date of 1990 Collection Date 06/14/2019 Maternal Weight 143 lbs Est'd Date of Delivery 11/29/2019 Nuchal Translucency 1.1 mm [place] Rump Length 46 mm Ultrasound Date 05/13/2019 Nasal Bone NOT ASSESSED Mother's Ethnic Origin Insulin Depend Diabetic NO Repeat Specimen NO Number of Fetuses 1 Hx Of Neural Tube Defects NO Cigarette smoker NOT GIVEN Twin B Nasal Bone NOT GIVEN 10 Drug Screen 06/14/2019 [facility] Urine None Detected [place] [address] Hydrocodone [facility] [phone] Screen Urine Oxycodone Screen None Detected None [...] None Detect 11 Urine Culture And 05/13/2019 [facility] Urine Culture SEE RESULT 12 [place] [address] BELOW [phone] GC/Chlamydia Dna 05/13/2019 [facility] Chlamydia [place] [address] trachomatis [phone] Jessika Neisseria gonorrhoeae (GC) Jessika Negative Negative Laboratory test 05/13/2019 [facility] Cytology SEE RESULT 13 [place] [address] BELOW [phone] Laboratory test 05/13/2019 [facility] TSH 0.87 mcIU/mL Normal 0.34-5 14 [place] [address] .60 [phone] T4 Free 0.86 ng/dL Normal 0.61-1.12 15 Parvovirus B19 05/13/2019 [facility] Parvovirus Negative Negative [place] [address] (B19) IgG [phone] Antibody Parvovirus (B19) IgM Antibody Negative Negative Parvovirus Interpretation See Comment 16 HIV 1&2 p24 05/13/2019 [facility] HIV 4th [place] [address] Generation [phone] Lead 05/13/2019 [facility] Lead,Venous, B < 1.0 g/dL 0.0- 4.9 17 [place] [address] [phone] Venous/Capillary Venous Submitting Laboratory Phone [phone] 18 Type And Screen 05/13/2019 [facility] Patient [place] [address] [phone] Antibody Screen NEGATIVE CBC With No 05/13/2019 [facility] White Blood 13.2 10^3/uL High 3.5-10.8 [place] [address] Count [phone] Red Blood Count 3.84 10^6/uL Normal 3.70-4.87 Hemoglobin 11.8 g/dL Low 12.0-16.0 Hematocrit 34 % Low 35-47 Mean Corpuscular Volume 89 fL Normal 80-97 Mean Corpuscular Hemoglobin 31 pg Normal 27-31 Mean Corpuscular HGB Conc 35 g/dL Normal 31-36 Red Cell Distribution Width 13 % Normal 10-15 Platelet Count 245 10^3/uL Normal 150-450 Mean Platelet Volume 8.9 fL Normal 7.4-10.4 PNL No 05/13/2019 [facility] Rubella Screen Immune Immune 19 [place] [address] [phone] Hemoglobin A1c 4.9 % Normal 4.0-5.6 20 Hepatitis B Surface Ag Nonreactive Nonreactive 21 Syphillis Igg W/Reflex RPR Negative Negative 22 Laboratory test finding 05/13/2019 [facility] PDF Report SEE IMAGE [id number] Sequential Integrated 05/13/2019 [facility] Interpretation: SEE NOTE 23 Screen, Part 1(FL) Age Risk Down Syndrome 1:710 JENNIFER Down Syndrome Risk IN PROCESS <1:50 JENNIFER Trisomy 18 Risk IN PROCESS <1:100 Calc'd Gestational Age 11.1 24 [place]-A 742.9 ng/mL 25 [place]-A MoM 1.28 hCG, Serum 104.3 IU/mL hCG MoM 1.00 NT MoM 0.94 26 Referring Physician Name RAMONA Referring Physician Phone NOT GIVEN Referring Physician Npi NOT GIVEN Date of [id number] Collection Date Maternal Weight 143 lbs Est'd Date of Delivery 11/29/2019 ELLA Determined by ULTRASOUND Mother's Ethnic Origin Number of Fetuses 1 Insulin Depend Diabetic NO Repeat Specimen NO Hx Of Neural Tube Defects NO Prev Down Synd NO Donor Egg NO Donor Age: Egg Retrieval NOT GIVEN Cigarette smoker NOT GIVEN Ultrasound Date 05/13/2019 Asic Engineer's Name HOLLI NTQR Asic Engineer Id# [id number] NTQR Location Id# [id number] NTQR Reading Phys Id# [id number] [facility] Asic Engineer Id# NOT GIVEN [place] Rump Length 46 mm Nuchal Translucency 1.1 mm Nasal Bone NOT ASSESSED If Twins NOT GIVEN Twin B CRL NOT GIVEN mm Twin B NT NOT GIVEN mm Twin B Nasal Bone NOT GIVEN 1 [id number] 2 The specimen was tested at the [...] WAS USED IN THE RISK CALCULATIONS. 5 [place] rump length (CRL) was used to calculate gestational age. ELLA, if provided, was not used for gestational age dating. 6 Reference Range: <2.50 IDD <1.90 TWINS <4.00 TWINS IDD <3.50 TRIPLETS <4.50 7 This test was performed using a kit that has not been cleared or approved by the FDA. The analytical performance characteristics of this test have been determined by [facility]. This test should not be used for [...] technique. Interpretation reviewed by: Mark Stapleton, Ph.D., [facility]. 9 ON TEST REQ ABOVE 10 For additional information, please refer to http://education.Senscient.Teespring/faq/FAQ94 (This link is provided for informational/educational purposes [...] call ; For technical questions, call ext [phone]; For recalculations, fax to [phone]. 11 The specimen was tested at the [...] MORROW : [address]: Ladan Mix [facility] Acct: [id number] Unit: [id number] AGE: 28 Location: [facility] Re05/13/19 SEX: F Status: REG REF SPEC: [id number] MEL: 05/13/[address]: Ladan Mix [facility] REQ: [id number] RECD: 05/13/19 STATUS: COMP _ SOURCE: URINE SPDESC: ORDERED: Urine Culture COMMENTS: [id number] Urine Source: Random Procedure Result Reported Site Urine Culture Final 05/14/19- 1600 ML No Growth (<1,000 CFU/mL) * ML - Main Lab . END OF REPORT DEPARTMENT OF PATHOLOGY, [address] [place] [address] Mitesh Garner M.D. Director [facility] # [id number] 13 SEE RESULT BELOW Name: TESHA MORROW : [address]: Ladan Mix [facility] Acct: [id number] Unit: [id number] AGE: 28 Location: [facility] Re05/13/19 SEX: F Status: REG REF SPEC: [id number] MEL: 05/13/[address]: Ladan Mix [facility] REQ: [id number] RECD: 05/14/19 STATUS: SOUT _ ORDERED: TP IMAGE ANALYS, SHOT FIREMAN PHYS INTERP, HPV/Thin Prep COMMENTS: [id number] FINAL DIAGNOSIS EPITHELIAL CELL ABNORMALITIES Atypical squamous [...] Actual Specimen Date: 02/24/19 LMP If Unknown: [id number] ?: Y Post Menopausal?: N Hysterectomy?: N CONTINUED ON NEXT PAGE DEPARTMENT OF PATHOLOGY, [address] [place] [address] Mitesh Garner M.D. Director [facility] # [id number] Previous Abnormal Pap Smears?:N Signed by and Reported on: Beryl Connelly MD 05/17/19 2667 This Pap test was evaluated with the assistance of the BookingNestPrep Test Imaging System. Due to cytologic findings at the prevention specialist microscope, comprehensive manual rescreening by a Operations Mgr may be required. The Pap Smear is [...] years. END OF REPORT DEPARTMENT OF PATHOLOGY, [facility] [address] [place], [place] [address] Mitesh Garner M.D. Director [facility] # [id number] 14 [id number] 15 [id number] 16 No antibody to Parvovirus B19 detected. Acute infection cannot be ruled out as antibody levels may be below the limit of detection. If clinically indicated, a second serum should be submitted in 14-21 days. ADDITIONAL INFORMATION This test has been modified from the email operations manager's instructions. Its performance characteristics were determined by [facility] in a manner consistent with CLIA requirements. This test has not been cleared or approved by the U.S. Food and Drug Administration. Test Performed by: [facility] [place] [address] Media Strategist: Thanh Sidhu M.D. Ph.D.; CLIA# [id number] 17 ADDITIONAL INFORMATION Testing performed by Inductively Coupled Plasma-Mass Spectrometry (ICP-MS). This test was developed and its performance characteristics determined by [facility] in a manner consistent with CLIA requirements. This test has not been cleared or approved by the U.S. Food and Drug Administration. 18 Test Performed by: [place] [address] Media Strategist: Thanh Sidhu M.D. Ph.D.; CLIA# [id number] 19 [id number] 20 Therapeutic target for the treatment of diabetes mellitus patients is <7% HBA1C, and in selective patients <6.0%. Please refer to [place] [employer] diabetic care guidelines for further information. 21 [id number] 22 [id number] 23 This patient's risk does not exceed [...] Specimen # from Part 1: [id number] 24 [place] rump length (CRL) was used to calculate gestational age. ELLA, if provided, was not used for gestational age dating. 25 This test was performed using a kit that has not been cleared or approved by the FDA. The analytical performance characteristics of this test have been determined by [facility]. This test should not be used for diagnosis without confirmation by other medically established means. 26 Interpretation reviewed by: Kathie Butterfield, Ph.D., [facility]. For additional information, please refer to http://education.ColonaryConcepts/faq/FAQ21 (This link is being provided for informational/educational [...] call ; For technical questions, call ext [phone]; For recalculations, fax to . Procedures Date Code Description Status 11/05/2019 70049 Biophysical Profile Without Non Stress Test Completed 11/05/2019 94621 Ultrasound,Transvaginal Completed 11/05/2019 23564 Echography Uterus Follow-Up Or Repeat Completed 08/24/2019 90667 Non-Stress Test Completed 07/15/2019 37674 Echography Uterus Complete Completed 05/13/2019 33341 OB Ultrasound First Trimester Completed Medical Devices Description No Information Available Encounters Type Date Location Provider Dx Diagnosis Office Visit 08/24/2019 Delivery Carlos Alfonso, O47.03 False labor before 37 8:53a M.D. completed weeks of gest, third tri Office Visit 08/11/2019 Delivery Doug Busots JR, DO R10.30 Lower abdominal pain, 9:49a unspecified Assessments Date Code Description Provider 11/05/2019 Z34.83 Encounter for supervision of other normal Dulce Hope , [facility] , third trimester 11/05/2019 O44.43 Low lying placenta NOS or without Ultrasounds hemorrhage, third trimester 10/14/2019 Z34.83 Encounter for supervision of other normal Winsome Aguirre, [facility] , third trimester 09/11/2019 Z36.9 Encounter for [...] 3:00 pm - Winsome Aguirre CNM at [facility]11/26/2019 2:30 pm - Winsome Aguirre CNM at [facility]11/19/2019 3 :00 pm - Dulce Hope CNM at [facility]11/12/2019 3:00 pm - Ladan Mix CNM at [facility]11/07/2018 - MARY IreneMO02.1 Missed Functional Status Description No Information Available Mental Status Description No Information Available Referrals Refer to Reason for Referral Status Appt Date [facility] 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
--- NOTE | 2019-11-25 12:45 | ED ---
GI/ HPI - HPI Summary HPI Summary: 29 y/o F who is 6 days post- presenting to [facility] c/o worsening heavy vaginal bleeding with clots, vaginal pain, fatigue, light headedness x5 days. She is using 1 pad every 45 minutes. She is followed by [facility]. Delivered spontaneous vaginally on 11/17 at 38 weeks . . Did not require any sutures. Had EBL 400 mL. Worsening symptoms since she was d/c from hospital 5 days ago. She was doing fine before she was discharged from the hospital. No abdominal pain. Symptoms aggravated by nothing. Symptoms alleviated by nothing. Medications reviewed. - History of Current Complaint Chief Complaint: EDVaginalBleeding Time Seen by Provider: 11/25/19 12:41 Stated Complaint: VAGINAL BLEEDING PER PT Hx Obtained From: Patient Onset/Duration: Started Days Ago - 5, Still Present Timing: Constant Current Severity: None Pain Intensity: 0 Aggravating Factor(s): Nothing Alleviating Factor(s): Nothing - Additional Pertinent History Primary Care Physician: [id number] - Allergy/Home Medications Allergies/Adverse Reactions: Allergies Allergy/AdvReac Type Severity Reaction Status Date / Time No Known Allergies Allergy Verified 11/25/19 12:36 Home Medications: Home Medications Levothyroxine Sodium 50 mcg PO DAILY 05/03/19 [History Confirmed 11/25/19] Sertraline HCl [Zoloft] 25 mg PO DAILY 11/20/19 [History Confirmed 11/25/19] PMH/Surg Hx/FS Hx/Imm Hx Endocrine/Hematology History: Reports: Hx Thyroid Disease - Thyroiditis- Levothyroxine Denies: Hx Anticoagulant Therapy, Hx Diabetes Cardiovascular History: Denies: Hx Hypertension Respiratory History: Reports: Hx Asthma - YOUNG CHILD Musculoskeletal History: Reports: Hx Scoliosis - SLIGHT Neurological History: Denies: Hx Headaches, Other Neuro Impairments/Disorders Psychiatric History: Reports: Hx Anxiety - Hx, Hx Depression, Hx Community Mental Health Tx - Surgical History Surgical History: Yes Surgery Procedure, Year, and Place: 11/16/18 S/P D&C for miscarriage Hx Anesthesia Reactions: - PT WOULD LIKE TO HEAR WHAT ARE THE ANESTHSIA OPTIONS - Immunization History Date of Tetanus Vaccine: UTD Date of Influenza Vaccine: NONE Infectious Disease History: No Infectious Disease History: Reports: Hx of Known/Suspected MRSA - [facility], elbow Denies: Traveled Outside the [place] in Last 30 Days - Family History Known Family History: Positive: Other - dad - ETOH abuse - Social History Alcohol Use: Occasionally Alcohol Amount: every other day Substance Use Type: Reports: None Hx Tobacco Use: Yes Smoking Status (MU): Former Smoker Have You Smoked in the Last Year: No Review of Systems Positive: Fatigue Negative: Abdominal Pain Positive: other - heavy vaginal bleeding with clots, vaginal pain Neurological/Mental Status: Other - light headedness All Other Systems Reviewed And Are Negative: Yes Physical Exam - Summary Physical Exam Summary: Constitutional: Well-developed, Well-nourished, Alert. (-) Distressed Skin: Warm, Dry HENT: Normocephalic; Atraumatic Eyes: Conjunctiva normal Neck: Musculoskeletal ROM normal neck. (-) JVD, (-) Stridor, (-) Nuchal rigidity Cardio: Rhythm regular, rate normal, Heart sounds normal; Intact distal pulses; Radial pulses are 2+ and symmetric. (-) Murmur Pulmonary/Chest wall: Effort normal. (-) Respiratory distress, (-) Wheezes, (-) Rales Abd: Soft, (-) tenderness, (-) Distension, (-) Guarding, (-) Rebound Musculoskeletal: (-) Edema Lymph: (-) Cervical adenopathy Neuro: Alert, Oriented x3 Psych: Mood and affect Normal Triage Information Reviewed: Yes Vital Signs On Initial Exam: Initial Vitals Temp Pulse Resp BP Pulse Ox 97.4 F 78 16 120/68 97 11/25/19 12:34 11/25/19 12:34 11/25/19 12:34 11/25/19 12:34 11/25/19 12:34 Vital Signs Reviewed: Yes Procedures - Sedation Patient Received Moderate/Deep Sedation with Procedure: No Diagnostics - Vital Signs Vital Signs Temp Pulse Resp BP Pulse Ox 11/25/19 12:34 97.4 F 78 16 120/68 97 - Laboratory Result Diagrams: 11/25/19 13:01 11/25/19 13:01 Lab Statement: Any lab studies that have been ordered have been reviewed, and results considered in the medical decision making process. - Ultrasound Pelvis Ultrasound Interpretation Completed By: Radiologist - IMPRESSION: ABNORMALLY THICKENED ENDOMETRIUM. THERE IS FOCALLY INCREASED FLOW WITHIN THE ENDOMETRIUM. THE DIFFERENTIAL INCLUDES A SMALL UTERINE AV MALFORMATION, THOUGH RETAINED PRODUCTS OF CONCEPTION IS WITHIN THE DIFFERENTIAL. RECOMMEND CORRELATION WITH BETA-HCG LEVELS. ED physician has reviewed this imaging report. GIGU Course/Dx - Course Course Of Treatment: 29 y/o F recent p/w vaginal bleeding. - lab w Hb 9 (baseline 10, post 7.9). - abd soft, US w possible retained products. D/w OB, will take to OR for D&C - Diagnoses Provider Diagnoses: Vaginal bleeding - Physician Notifications Discussed Care Of Patient With: Torey Mcdonough - Requests an ultrasound. 1419 Dr. Mcdonough will come see the patient. 1454 Dr. Mcdonough will take patient to the OR. Time Discussed With Above Provider: 13:13 - Critical Care Time Critical Care Statement: Critical care time is provided exclusive of any time spent performing procedures. Discharge ED - Sign-Out/Discharge Documenting (check all that apply): Patient Departure - Discharge Plan Condition: Stable Disposition: ADMITTED TO [facility] Referrals: Colette Lucas MD [Primary Care Provider] - - Billing Disposition and Condition Condition: STABLE Disposition: Admitted to [facility] - Attestation Statements Document Initiated by Scribe: Yes Documenting Scribe: Mayte Oshea Provider For Whom Scribe is Documenting (Include Credential): Dejuan Prakash MD Scribe Attestation: I, Mayte Oshea, scribed for Dejuan Prakash MD on 11/25/19 at 1457. Scribe Documentation Reviewed: Yes Provider Attestation: The documentation as recorded by the scribeMayte accurately reflects the service I personally performed and the decisions made by me, Dejuan Prakash MD Status of Scribe Document: Viewed
[2019-11-25 13:32] LABS: ABS Basophils 0.1 10^3/ul (0-0.2); ABS Eosinophils 0.4 10^3/ul (0-0.6); ABS Lymphocytes 2.5 10^3/ul (1.0-4.8); ABS Monocytes 0.7 10^3/ul (0-0.8); Eosinophil % 3.9 %; Hematocrit 28 % (35-47); Hemoglobin 9.1 g/dL (12.0-16.0); Lymphocyte % 23.6 %; Mean Corpuscular HGB Conc 33 g/dL (31-36); Mean Corpuscular Hemoglobin 28 pg (27-31); Mean Corpuscular Volume 85 fL (80-97); Mean Platelet Volume 8.2 fL (7.4-10.4); Nucleated Red Blood Cells % 0.1; Platelet Count 398 10^3/uL (150-450); Red Blood Count 3.22 10^6 /uL (3.70-4.87); Red Cell Distribution Width 13 % (10-15); White Blood Count 10.7 10^3/uL (3.5-10.8)
[2019-11-25 13:45] LABS: Albumin 3.6 g/dL (3.2-5.2); Albumin/Globulin Ratio 1.1 (1-3); BUN/Creatinine Ratio 12.3 (8-20); EGFR African American 132.3 (>60); EGFR Non-African American 109.3 (>60); Globulin 3.2 g/dL (2-4); Potassium 3.7 mmol/L (3.5-5.0); Total Bilirubin 0.3 mg/dL (0.2-1.0); Total Protein 6.8 g/dL (6.4-8.9)
--- NOTE | 2019-11-25 15:10 | HP ---
History of Present Illness - History of Present Illness Reason for Visit: Bleeding History of Present Illness: Pt is a 29yo about a week s/p uncomplicated . Pt reports normal bleeding during hospital stay, but for the past 4 days at home , she has been bleeding fairly heavily, filling a large pad every 45 min or so. Feels some fatigue, but no dizziness/syncope. uncomplicated, but she did have a low-lying placenta which resolved. Pt is not . - Past Medical History Pulmonary: Asthma HOSPITALITY AMBASSADOR: Migraine Psych: Depression Dermatology: Eczema Grav: 4 Para: 2 Ab: 2 - Past Surgical History Past Surgical History: Other - D&C x2 - Past Family History Family History: None - Past Social History Smoke: No Drugs: None Lives: With Family Review of Systems - Review of Systems Constitutional: Negative: Fever, Chills, Sweats, Weakness, Other Respiratory: Negative: Cough, Dry, Shortness of Breath, Hemoptysis, SOB with Excertion, Pleuritic Pain, Sputum, Wheezing Gastrointestinal: Positive: Melena, Hematochezia. Negative: Nausea, Vomiting, Abdominal Pain, Diarrhea, Constipation, Other Genitourinary: Positive: Other - vaginal bleeding. Negative: Dysuria, Frequency , Incontinence, Hematuria, Retention - Medications/Allergies Allergies/Adverse Reactions: Allergies Allergy/AdvReac Type Severity Reaction Status Date / Time No Known Allergies Allergy Verified 11/25/19 12:36 Medications: vitamins, levothyroxine 50mcg daily Exam - Exam Vital Signs: Vital Signs (72 hours) 11/25/19 12:34 Temperature 97.4 F Pulse Rate 78 Respiratory 16 Rate Blood Pressure 120/68 (mmHg) O2 Sat by Pulse 97 Oximetry General: Alert, Oriented x3, Cooperative, No acute distress HEENT: Atraumatic Lungs: Clear to auscultation, Normal air movement Cardiovascular: Regular rate, Normal S1, Normal S2 Abdomen: Soft, No tenderness, No hepatospenomegaly Psych/Mental Status: Mental status NL, Mood NL Assessment/Plan - Assessment/Plan Assessment: 29yo about one week s/p uncomplicated with persistent bleeding for the past 4 days at home. Hct actually improved from value, likely related to diuresis. Ultrasound today shows 2.5cm thickened endometrial stripe with some density seen , likely consistent with retained placental tissue. Plan: Considering these findings along with her persistent bleeding, I recommend a D& C today. Pt agrees. Counseled regarding risks of hemorrhage, transfusion, infection, organ injury, uterine perforation. All questions answered. Consent signed.
[2019-11-25] MEDS ORDERED: DOXYcycline IV 200 MG in NS 250 mL *Pre-Op OBGYN IVPB ONE (16:00)
[2019-11-25] MEDS ORDERED: Midazolam* 1 MG/ML 2 ML VIAL (2 MG) ONE ×2 (16:10→16:22)
[2019-11-25] MEDS ORDERED: Chloroprocaine 2%* 20 ML VIAL ONE (16:13)
[2019-11-25] MEDS ORDERED: Ketorolac INJ* 30 MG/ML 1 ML VIAL ONE (18:58)
[2019-11-25 19:09] VITALS: BP 108/73
--- NOTE | 2019-11-25 19:40 | OP ---
OPERATIVE REPORT: DATE OF OPERATION: 11/25/19 - [facility] DATE OF : 89 SURGEON: Torey Mcdonough MD ANESTHESIOLOGIST: Dr. Matute. ANESTHESIA: Spinal. PRE-OP DIAGNOSES: 1. retained placenta. 2. Persistent bleeding. POST-OP DIAGNOSES: 1. retained placenta. 2. Persistent bleeding. OPERATIVE PROCEDURE: Suction, dilation, and curettage. ESTIMATED BLOOD LOSS: 150 cc. IV FLUIDS: 800 cc lactated Ringer's. URINE OUTPUT: Minimal. MATERIALS TO LAB: Retained placental tissue. INDICATIONS: This patient is a 29-year-old 4, para 2, approximately 1 week , status post an uncomplicated vaginal delivery. The patient reported normal light bleeding during her stay in the hospital; however, when she got home her bleeding became heavier and she had fairly persistent bleeding for the last 4 days without improvement. On ultrasound in the ER today, she was noted to have an approximately 2.5 cm endometrial thickness with dense tissue visible. Considering the patient's symptoms and the likely retained products on ultrasound, the decision was made to proceed with a dilation and curettage. The patient was extensively counseled and she agreed with the plan and consented. FINDINGS: Moderate amount of white and nearly black necrotic tissue firmly adherent, especially to the anterior uterine wall. This was removed with both suction and sharp curettage until there was no additional tissue remaining. COMPLICATIONS: None. DESCRIPTION OF PROCEDURE: The risks, benefits, and alternatives were described to the patient and informed consent was obtained. The patient was taken to the operating room with IV running where spinal anesthesia was induced and found to be adequate. The patient was prepped and draped in the normal sterile fashion in the high lithotomy position and [place] stirrups. A time-out was performed. The bladder was emptied. A bivalved speculum was placed in the vagina and a single- tooth tenaculum was placed on the anterior cervix. The cervix was then noted to already be dilated to about 15 mm. A size 10 suction curette was then advanced through the cervix and into the uterine cavity without difficulty. An examination had confirmed that the uterus was anteverted. Once the suction curette was in place, suction was activated and a moderate amount of blood and both white and dark tissue were evacuated. Once this was done with a couple of passes with the suction curette, a large Banjo curette was used and it was noted that there was a moderate amount of additional adherent tissue on the anterior uterine wall. This was able to be scraped down. The lateral and posterior aspects of the uterine cavity palpated normal. Once all of the tissue appeared to be removed, the suction curette was placed into the uterine cavity one more time and there was minimal additional tissue present. Bleeding was also very light at that time. The tenaculum was removed from the cervix and pressure was applied to the anterior cervix with a sponge stick. At that time, there was minimal bleeding. The speculum was removed and the patient was returned to the supine position. The patient tolerated the procedure well. Sponge, lap, and needle counts were correct x2. [id number] #: [id number] [facility]ITALMaximus
== END 2019-11-25 19:00 | disposition home or self-care (01) ==
LOC: ED 12:32 → OR 15:03
PROVIDERS: ATTEND Obstetrics & Gynecology
DX: O72.2 Delayed and secondary postpartum hemorrhage (principal); J45.909 Unspecified asthma, uncomplicated; E03.9 Hypothyroidism, unspecified; F32.9 Major depressive disorder, single episode, unspecified
CPT/HCPCS: 36415; 76856; 80053; 85025; 86850; 86900; 86901; 88305; 99284; J1885; J2250; J2400